=== PATIENT | male | born 1980 | race Caucasian/White ===

== ENCOUNTER 2016-07-14 16:24 | Emergency (ER) | payer MEDICAID ==
[~2016-07-14] VITALS: Ht 180.3 cm; Wt 68.0 kg
[2016-07-14 17:23] VITALS: BP 158/86
[2016-07-14] MEDS ORDERED: NEOMYCIN/POLYMYXIN/BACITRACIN 0.9 GM/1 PKT TP ONE (18:28)
--- NOTE | 2016-07-14 18:30 | NUR ---
PT BIB CAREGIVERS FOR EVALUATION OF BUMP ON FOREHEAD S/P FALL FROM W/C AT DAY PROGRAM. HX CP, DD. . DENIES N/V/D; SKIN IS PINK/WARM/DRY; AAOX4 WITH EVEN AND STEADY GAIT; LUNGS CLEAR BL; HR EVEN AND REGULAR; PT DENIES ANY FEVER, CP, SOB, OR COUGH AT THIS TIME; PATIENT STATES PAIN OF 0/10 AT THIS TIME; VSS; PATIENT POSITIONED FOR COMFORT; HOB ELEVATED; BEDRAILS UP X2; BED DOWN. ER MD MADE AWARE OF PT STATUS.
[2016-07-14] MEDS ORDERED: BACITRACIN OINT 500 UNITS/GM PKT TP ONE (18:40)
[2016-07-14 19:00] VITALS: BP 132/86
--- NOTE | 2016-07-14 19:00 | NUR ---
Patient discharged with v/s stable. Written and verbal after care instructions given and explained. Patient verbalized understanding. Wheel Chair Assisted with by parent. All questions addressed prior to discharge. Advised to follow up with PMD.
== END 2016-07-14 19:00 | disposition home or self-care (01) ==
LOC: MED 16:25
DX: S00.81XA Abrasion of other part of head, initial encounter (principal); X58.XXXA Exposure to other specified factors, initial encounter; Y93.89 Activity, other specified; Y92.89 Other specified places as the place of occurrence of the external cause; Y99.8 Other external cause status

== ENCOUNTER 2018-12-25 12:48 | Emergency (ER) | payer MEDICAID ==
[~2018-12-25] VITALS: Ht 182.9 cm; Wt 63.5 kg
[2018-12-25 12:56] VITALS: BP 133/68
--- NOTE | 2018-12-25 12:56 | NUR ---
Patient transferred to bed 8 via personal wheelchair by caregiver. RN evaluating patient at bedside.
--- NOTE | 2018-12-25 13:06 | NUR ---
Patient being evaluated by Dr. Ferrari at bedside.
--- NOTE | 2018-12-25 13:09 | NUR ---
Pt c/o right ankle pain. Pt bib caregiver, states pt fell while inside the w/c. Caregiver states "We believe the ankle may be sprained." Pt withdraws from touch to right ankle. Pt non verbal, at baseline per caregiver. There is an abrasion to left forearm. No active bleeding ntoed. hx CP, Klinefelers syndrome, MRSA skin
--- NOTE | 2018-12-25 13:20 | NUR ---
XRAY AT BEDSIDE.
--- NOTE | 2018-12-25 14:44 | NUR ---
PATIENT RESTING IN BED, EYES OPEN SPONTANEOUSLY, FLACC 0, RESPIRATIONS EVEN AND UNLABORED.
--- NOTE | 2018-12-25 14:49 | NUR ---
EMT AT BEDSIDE FOR SPLINT.
--- NOTE | 2018-12-25 15:09 | NUR ---
LONG LEG POSTERIOR SPLINT PLACED ON RIGHT LEG.
[2018-12-25 16:11] VITALS: BP 123/45
--- NOTE | 2018-12-25 16:11 | NUR ---
Written and verbal after care instructions given and explained to caregiver. Wheel chair assisted by caregiver to car. All questions addressed prior to discharge. ID band removed. Caregiver provided with CD with copies of x-rays. Patient advised to follow up with PMD. Rx of Tramadol given. Patient educated on indication of medication including possible reaction and side effects. Opportunity to ask questions provided and answered.
== END 2018-12-25 16:11 | disposition home or self-care (01) ==
LOC: MED 12:48
DX: S82.244A Nondisplaced spiral fracture of shaft of right tibia, initial encounter for closed fracture (principal); G80.9 Cerebral palsy, unspecified; W05.0XXA Fall from non-moving wheelchair, initial encounter; Y93.89 Activity, other specified; Y92.89 Other specified places as the place of occurrence of the external cause; Y99.8 Other external cause status
CPT/HCPCS: 29505; 29515; 73590; 99283

== ENCOUNTER 2019-10-06 14:02 | Emergency (ER) | payer MEDICAID ==
[~2019-10-06] VITALS: Ht 182.9 cm; Wt 88.5 kg
[2019-10-06 14:16] VITALS: BP 110/79
--- NOTE | 2019-10-06 14:20 | NUR ---
39 YO MALE PT HAS WHAT APPEARS TO BE A BUG BITE ON HIS LEFT THUMB X1W. PT IS NON VERBAL BUT HAS BEEN SEEN RUBBING HIS THUMB. THUMB IS RED AND SWOLLEN, NO BLEEDING OR DISCHARGE. DAVIDA
[2019-10-06 15:17] VITALS: BP 110/79
--- NOTE | 2019-10-06 15:18 | NUR ---
Patient discharged with v/s stable. Written and verbal after care instructions given and explained. Patient alert, oriented and verbalized understanding of instructions. Ambulatory with by caregiver. All questions addressed prior to discharge. ID band removed. Patient advised to follow up with PMD. Rx of BACTRIM AND IBUPROFEN given. Patient educated on indication of medication including possible reaction and side effects. Opportunity to ask questions provided and answered.
== END 2019-10-06 15:18 | disposition home or self-care (01) ==
LOC: MED 14:02
DX: L03.012 Cellulitis of left finger (principal)
CPT/HCPCS: 99282

== ENCOUNTER 2019-10-08 19:26 | Inpatient (IN) | payer MEDICAID ==
[~2019-10-08] VITALS: Ht 185.4 cm; Wt 72.6 kg
[2019-10-08 19:31] VITALS: BP 152/91
--- NOTE | 2019-10-08 19:37 | NUR ---
PT TAKEN TO BED 5
[2019-10-08] MEDS ORDERED: KETOROLAC 30 MG/ML VIAL IM ONE (19:40)
--- NOTE | 2019-10-08 19:50 | NUR ---
ADRIAN OTERO WITH PT
[2019-10-08] MEDS ORDERED: cefTRIAXone 1,000 MG VIAL ONE (20:07)
--- NOTE | 2019-10-08 20:15 | NUR ---
LABS AND CULTURES OBTAINED AND GIVEN TO LEAD INJECTION MOLD TECHNICIAN.
--- NOTE | 2019-10-08 20:15 | NUR ---
39 Y/O M PRESENTS TO ED WITH HIS CAREGIVER C/O LEFT THUMB PAIN 3/10 FLACC X 2 DAYS AGO. PT WAS SEEN ON WEDNESDAY FOR AN INFECTION OF THE LEFT THUMB, WAS PRESCRIBED ANTIBIOTICS. PER CAREGIVER, PT IS TAKING HIS ANTIBIOTICS BUT NOTICED THAT THE CUT HAS OPENED UP TODAY AND WAS BLEEDING. BLEEDING CONTROLLED DURING ASSESSMENT. REDNESS NOTED ON THE LEFT THUMB ALL THE WAY TO LEFT FOREARM. EXTREMITY WARM TO TOUCH, LEFT THUMB SWOLLEN NOTED. CAREGIVER AT BEDSIDE. PT SITTING ON OWN WHEELCHAIR. ATTACHED TO BEDSIDE MONITOR. WILL CONTINUE TO MONITOR. MHX: LOVEIES DAVIDA
--- NOTE | 2019-10-08 20:18 | NUR ---
RAD AT BEDSIDE.
[2019-10-08 20:21] LABS: BASOPHILS # (AUTO) 0.1 K/uL (0.00-0.22); BASOPHILS % (AUTO) 0.4 % (0.0-2.0); EOSINOPHILS # (AUTO) 0.1 K/uL (0-0.4); EOSINOPHILS % (AUTO) 0.8 % (0.0-4.0); HEMATOCRIT 48.7 % (36-52); HEMOGLOBIN 15.8 g/dL (12.0-18.0); LYMPHOCYTES # (AUTO) 1.1 K/uL (2.0-11.5); MEAN CORPUSCULAR HEMOGLOBIN 30 pg (27-31); MEAN CORPUSCULAR HGB CONC 32 g/dL (33-37); MEAN CORPUSCULAR VOLUME 91.1 fL (80-94); MONOCYTES # (AUTO) 0.9 K/uL (0.8-1.0); MONOCYTES % (AUTO) 7.9 % (1.7-9.3); NEUTROPHILS # (AUTO) 9.2 K/uL (1.8-7.7); NEUTROPHILS % (AUTO) 80.9 % (42.2-75.2); PLATELET COUNT (AUTO) 203 K/uL (140-450); RED BLOOD CELL COUNT(AUTO) 5.34 MIL/uL (4.20-6.10); WHITE BLOOD COUNT (AUTO) 11.4 K/uL (4.8-10.8)
[2019-10-08] MEDS ORDERED: ACETAMINOPHEN EXTRA STRENGTH 500 MG TAB ONE (20:39)
[2019-10-08] MEDS ORDERED: ACETAMINOPHEN EXTRA STRENGTH 500 MG TAB PO ONE (20:40)
[2019-10-08 20:45] LABS: ANION GAP 12.7 (8-16); CARBON DIOXIDE 30.1 mmol/L (21-32); CREATININE 1.2 mg/dL (0.6-1.3); POTASSIUM 3.8 mmol/L (3.5-5.1); TOTAL BILIRUBIN 0.3 mg/dL (0.0-1.0)
--- NOTE | 2019-10-08 20:46 | NUR ---
PT ABLE TO SWALLOW PILLS WITH APPLE SAUCE.
[2019-10-08] MEDS ORDERED: NACL 0.9% 2,500 ML IV ONE (20:50)
[2019-10-08] MEDS: NACL 0.9% 1,000 ML IV SCH (21:28)
[2019-10-08] MEDS ORDERED: ONDANSETRON 4 MG/2 ML VIAL IM/IVP PRN (21:30)
[2019-10-08] MEDS ORDERED: DOCUSATE SODIUM 100 MG GELCAP PO PRN (21:30)
[2019-10-08] MEDS ORDERED: POTASSIUM CHLORIDE 10 MEQ TABER PO PRN (21:30)
[2019-10-08] MEDS ORDERED: ACETAMINOPHEN 325 MG TAB PO PRN (21:30)
[2019-10-08] MEDS ORDERED: ZOLPIDEM 5 MG TAB PO PRN (21:30)
[2019-10-08] MEDS ORDERED: HYDROcodone/APAP 7.5/325 MG 1 TAB PO PRN (21:30)
[2019-10-08 21:45] VITALS: BP 105/74
--- NOTE | 2019-10-08 21:45 | NUR ---
ADMITTED THE PATIENT FROM E. BY WHEELCHAIR. PATIENT IS AWAKE,ALERT BUT UNABLE TO PROVIDE ANY INFORMATION BECAUSE PATIENT IS DEVELOPMENTALLY DELAYED AND HAS HISTORY OF CEREBRAL PALSY. PT BILLET ASSEMBLER AUDREY AT THE BEDSIDE ALSO HAS A LIMITED INFORMATION ABOUT THE PATIENT. HELPED THE PT TO BED AND NEEDED 2 PEOPLE ASSIST. PATIENT WAS ABLE TO STAND UP WITH ASSISTANCE AND TRANSFER TO BED. WHEN THE PT IS IN BED NOTED THAT HE WAS TRYING TO GET OUT OF BED AND PER CAREGIVER PT SOMETIMES GET OOB AND STARTS CRAWLING ON THE FLOOR. NOTIFIED THE THEATRICAL PERFORMER THAT THE PT NEEDS A SITTER. TRANSFERRED THE PT TO ROOM 123B AND SITTER IS PROVIDED AND AT THE BEDSIDE. WILL CALL MD FOR THE SITTER ORDER. CALL LIGHT WITHIN REACH. WILL CONTINUE POC.
--- NOTE | 2019-10-08 22:00 | NUR ---
Patient will be admitted to care of DR. MCGHEE. Admited to MED-SURG. Will go to room 123B. Belongings list completed. Report to ISAMAR GONZALEZ.
[2019-10-08 22:10] LABS: CHOL/HDL RATIO 4.2 (1-4.5); FREE T4 (FREE THYROXINE) 0.96 ng/dL (0.76-1.46); MAGNESIUM 2.1 mg/dL (1.8-2.4); PHOSPHORUS 2.4 mg/dL (2.5-4.9); THYROID STIMULATING HORMONE 0.64 uIU/mL (0.34-3.74)
[2019-10-08 22:13] LABS: PROTHROMBIN TIME 9.9 secs (10.8-13.4)
[2019-10-08] MEDS ORDERED: BISA-218 RC (22:31)
[2019-10-08] MEDS ORDERED: MIRABULK PO (22:31)
[2019-10-08] MEDS ORDERED: ERYT2GEL22 TP (22:31)
[2019-10-08] MEDS ORDERED: KEP500 PO (22:31)
[2019-10-08] MEDS ORDERED: MAGN2400 PO (22:31)
[2019-10-08] MEDS ORDERED: NA P133N16 RC (22:31)
[2019-10-08] MEDS ORDERED: MULT-2247 PO (22:31)
[2019-10-08] MEDS ORDERED: CARB15DR5 OT (22:31)
[2019-10-08] MEDS ORDERED: CHLO120L4 TP (22:31)
[2019-10-08] MEDS ORDERED: LEVE500T9 PO (22:31)
[2019-10-08] MEDS ORDERED: NAPR220T29 PO (22:31)
[2019-10-08] MEDS ORDERED: ROB1 PO (22:31)
[2019-10-08] MEDS ORDERED: LEVE250T1 PO (22:31)
[2019-10-08] MEDS ORDERED: DOCO1CRE TP (22:31)
[2019-10-08] MEDS ORDERED: ACET-2619 PO (22:31)
[2019-10-08] MEDS ORDERED: ceFAZolin 1,000 MG VIAL ONE (23:35)
[2019-10-09] VITALS: BP 124/91
--- NOTE | 2019-10-09 | NUR ---
PATIENT FELL ASLEEP.VITAL SIGNS STABLE,AFEBRILE, SATING 98% ON RA. SITTER AT THE BEDSIDE FOR SAFETY.
--- NOTE | 2019-10-09 03:33 | NUR ---
PT STILL ASLEEP. VISIBLE CHEST RISE AND FALL NOTED. SAFETY MEASURES IN PLACED.
[2019-10-09] MEDS ORDERED: ceFAZolin 1,000 MG VIAL ONE (04:25)
--- NOTE | 2019-10-09 05:20 | NUR ---
PT AWAKE AND ALERT. EVENING CARE PROVIDED. SECURED PATIENT IV ON THE RT ANTECUBITAL AREA. PATIENT HAS BM, SOFT, MODERATE AMOUNT. BED IN LOW POSITION.NOT IN ANY DISTRESS OR PAIN.SITTER AT THE BEDSIDE.
--- NOTE | 2019-10-09 06:31 | NUR ---
PATIENT STABLE. NO ACUTE EVENTS OVERNIGHT. NO SIGN AND SYMPTOMS OF DISTRESS NOTED. NO COMPLAIN AT THIS TIME. ALL NEEDS ATTENDED. CALL LIGHT WITHIN REACH. WILL ENDORSE THE PT TO THE ONCOMING RN FOR CONTINUITY OF CARE.
[2019-10-09 06:51] LABS: BASOPHILS % (AUTO) 0.4 % (0.0-2.0); EOSINOPHILS # (AUTO) 0.1 K/uL (0-0.4); EOSINOPHILS % (AUTO) 1.8 % (0.0-4.0); HEMATOCRIT 42.7 % (36-52); HEMOGLOBIN 14.1 g/dL (12.0-18.0); LYMPHOCYTES # (AUTO) 1.9 K/uL (2.0-11.5); LYMPHOCYTES % (AUTO) 26.5 % (20.5-51.1); MEAN CORPUSCULAR HEMOGLOBIN 30 pg (27-31); MEAN CORPUSCULAR HGB CONC 33 g/dL (33-37); MEAN CORPUSCULAR VOLUME 90.4 fL (80-94); MONOCYTES # (AUTO) 0.6 K/uL (0.8-1.0); NEUTROPHILS # (AUTO) 4.6 K/uL (1.8-7.7); NEUTROPHILS % (AUTO) 63.3 % (42.2-75.2); PLATELET COUNT (AUTO) 183 K/uL (140-450); RED BLOOD CELL COUNT(AUTO) 4.72 MIL/uL (4.20-6.10); RED CELL DISTRIBUTION WIDTH 13.7 % (11.6-13.7); WHITE BLOOD COUNT (AUTO) 7.2 K/uL (4.8-10.8)
[2019-10-09 07:10] LABS: ANION GAP 9.6 (8-16); CARBON DIOXIDE 31.1 mmol/L (21-32); CREATININE 0.9 mg/dL (0.6-1.3); POTASSIUM 3.7 mmol/L (3.5-5.1)
--- NOTE | 2019-10-09 07:15 | NUR ---
PATIENT STABLE. ENDORSED THE PT TO THE DAY RN FOR CONTINUITY OF CARE.BED IN LOW POSITION. SIGNING OFF.
--- NOTE | 2019-10-09 07:20 | NUR ---
RECEIVED BEDSIDE REPORT FROM NIGHTSHIFT NURSE. PT RESTING IN BED. ABLE TO MAKE NEEDS KNOWN. RESPIRATIONS EVEN AND UNLABORED WITH NO SOB OR RESPIRATORY DISTRESS. SKIN WARM AND DRY TO TOUCH. IV SITE IN RAC 20G IS CLEAN, DRY, AND INTACT. SAFETY MEASURES IN PLACE. WILL CONTINUE TO MONITOR
[2019-10-09 08:00] VITALS: BP 128/58
[2019-10-09] MEDS: NACL 0.9% 1,000 ML IV SCH ×3 (08:08→23:44)
--- NOTE | 2019-10-09 08:09 | NUR ---
ADMINISTERED SCHED MED PRESCRIBED PER MD ORDER. PT TOLERATED WELL. SAFETY MEASURES IN PLACE. WILL CONTINUE TO MONITOR
--- NOTE | 2019-10-09 09:39 | NUR ---
PATIENT HAS BEEN SCREENED AND CATEGORIZED MODERATE NUTRITION RISK. PATIENT WILL BE SEEN WITHIN 3-5 DAYS OF ADMISSION. 10/11/19 10/13/[address]
--- NOTE | 2019-10-09 10:15 | NUR ---
SWABBED PATIENT FOR COVID PRESCRIBED PER MD ORDER. PT TOLERATED OKAY. SAFETY MEASURES IN PLACE. WILL CONTINUE TO MONITOR
--- NOTE | 2019-10-09 10:30 | NUR ---
ASSISTED SITTER TURN, CHANGE, AND REPOSITION PATIENT TOLERATED WELL. SAFETY MEASURES IN PLACE. WILL CONTINUE TO MONITOR
--- NOTE | 2019-10-09 12:35 | NUR ---
ADMINISTERED SCHED MED PRESCRIBED PER MD ORDER. PT TOLERATED WELL. SAFETY MEASURES IN PLACE. WILL CONTINUE TO MONITOR
--- NOTE | 2019-10-09 14:05 | NUR ---
ASSISTED SITTER TURN, CHANGE, AND REPOSITION PATIENT TOLERATED WELL. SAFETY MEASURES IN PLACE. WILL CONTINUE TO MONITOR
--- NOTE | 2019-10-09 14:18 | NUR ---
NURSE PRACTITIONER PHYSICIANS ASSISTANT NOTE: Patient's Orientation Unable To Assess Information Provided By [facility] - ADMIN Comments SW WAS UNABLE TO MEET PATIENT AT BEDSIDE DUE TO MEDICAL CONDITION. Planer Chain Offbearer, Realtionship and Phone Number [facility] OF [facility] [phone] CAROL ANN MINAYA MOTHER [phone] Healthcare Power of Lens Inspector No Does Patient Have a POLST No Identifying Problems No Social Work Triggers Is A Social Work Consult Needed No Mandate Report Filed No Explanation Of Identifying Problems PATIENT IS A 39-YEAR-OLD MALE ADMITTED FOR CELLULITIS. PATIENT HAS PMHX OF CEREBRAL PALSY, DEVELOPMENTAL DELAY, AND SEIZURE DISORDER. PATIENT WAS ADMITTED FROM [facility]. Admitted From [facility] Pre-Admission Level Of Functioning Status Total Care Prior Resources/Services Used In Last 12 Months [facility] Prior Resources/Service Comments PER [facility], PATIENT'S IRC WORKER IS AIXA SWANN [phone]. Prior DME Wheelchair Patient Had Caregiver No Home Support No Caregiver Issues Financial Issues No Known Financial Issue Referral To The Financial Counselor Needed No Factors/Needs No D/C Needs Identified Explanation And Or Other Factors Affecting/Possible DC Needs PER [facility], PATIENT REQUIRES 1 NEGATIVE COVID TESTING AND TO INFORM [facility] BEFORE PATIENT IS ACCEPTED. Discharge Plan Comments TENTATIVE DISCHARGE PLAN IS FOR PATIENT TO RETURN TO [facility]. DC Plan Status Initiated
--- NOTE | 2019-10-09 15:34 | NUR ---
HOURLY ROUNDING. PT RESTING IN BED WITH SITTER AT DOORWAY. RESPIRATIONS EVEN AND UNLABORED WITH NO SOB OR RESPIRATORY DISTRESS. SKIN WARM AND DRY TO TOUCH. SAFETY MEASURES IN PLACE. WILL CONTINUE TO MONITOR
[2019-10-09 16:00] VITALS: BP 121/55
--- NOTE | 2019-10-09 18:03 | NUR ---
ADMINISTERED SCHED MED PRESCRIBED PER MD ORDER. PT TOLERATED WELL. MEDICATION EDUCATION PERFORMED. PT APHASIC AND UNABLE TO VERBALIZE UNDERSTANDING. SAFETY MEASURES IN PLACE. WILL CONTINUE TO MONITOR
--- NOTE | 2019-10-09 19:03 | NUR ---
ENDORSED AT BEDSIDE FOR CONTINUITY OF CARE. PT IS STABLE
--- NOTE | 2019-10-09 19:05 | NUR ---
RECEIVED PATIENT IN STABLE CONDITION FROM AM SHIFT NURSE FOR CONTINUITY OF CARE. MEDSURG PATIENT. RESPIRATIONS EVEN, UNLABORED. SKIN WARM, DRY. LEFT THUMB IS RED, WARM TO TOUCH. IV SITE NOTED TO RIGHT AC 20G PATENT/INTACT, INFUSING FLUIDS WELL. FLACC 0. NO S/S ACUTE DISTRESS. ABDOMEN SOFT, NONTENDER, NONDISTENDED. INCONTINENT OF B/B. SAFETY PRECAUTIONS IN PLACE. ISOLATION PRECAUTIONS OBSERVED BY ALL STAFF. PLAN OF CARE DISCUSSED. CALL LIGHT WITHIN REACH. SITTER AT BEDSIDE.
[2019-10-09] MEDS: levETIRAcetam 500 MG TAB PO SCH (20:53)
--- NOTE | 2019-10-09 21:00 | NUR ---
PATIENT RESTING COMFORTABLY IN BED. DUE MEDS GIVEN ORDERED. SITTER AT BEDSIDE.
--- NOTE | 2019-10-09 23:00 | NUR ---
INCONTINENT CARE RENDERED WITH FOOD SAFETY DIRECTOR AT BEDSIDE. NO S/S ACUTE DISTRESS. FLACC 0. SITTER CONTINUES AT BEDSIDE FOR SAFETY.
[2019-10-10] VITALS: BP 137/91
--- NOTE | 2019-10-10 01:07 | NUR ---
MADE ROUNDS. PATIENT RESTING COMFORTABLY IN BED. FLACC 0. NO S/S ACUTE DISTRESS. SAFETY PRECAUTIONS IN PLACE. ISOLATION PRECAUTIONS OBSERVED BY ALL STAFF.
--- NOTE | 2019-10-10 03:02 | NUR ---
PATIENT IS ASLEEP. NO S/S ACUTE DISTRESS. SAFETY PRECAUTIONS IN PLACE. ISOLATION PRECAUTIONS OBSERVED BY ALL STAFF.
--- NOTE | 2019-10-10 05:41 | NUR ---
INCONTINENT CARE RENDERED WITH METAL WORKER AT BEDSIDE. FLACC 0. NO S/S ACUTE DISTRESS. SAFETY PRECAUTIONS IN PLACE. ISOLATION PRECAUTIONS OBSERVED BY ALL STAFF. SITTER AT BEDSIDE.
[2019-10-10 06:22] LABS: BASOPHILS % (AUTO) 0.5 % (0.0-2.0); EOSINOPHILS # (AUTO) 0.3 K/uL (0-0.4); EOSINOPHILS % (AUTO) 6.1 % (0.0-4.0); HEMATOCRIT 42.3 % (36-52); HEMOGLOBIN 13.9 g/dL (12.0-18.0); LYMPHOCYTES # (AUTO) 1.9 K/uL (2.0-11.5); LYMPHOCYTES % (AUTO) 44.7 % (20.5-51.1); MEAN CORPUSCULAR HEMOGLOBIN 30 pg (27-31); MEAN CORPUSCULAR HGB CONC 33 g/dL (33-37); MEAN CORPUSCULAR VOLUME 90.4 fL (80-94); MONOCYTES # (AUTO) 0.3 K/uL (0.8-1.0); MONOCYTES % (AUTO) 7.6 % (1.7-9.3); NEUTROPHILS # (AUTO) 1.8 K/uL (1.8-7.7); NEUTROPHILS % (AUTO) 41.1 % (42.2-75.2); PLATELET COUNT (AUTO) 163 K/uL (140-450); RED BLOOD CELL COUNT(AUTO) 4.68 MIL/uL (4.20-6.10); RED CELL DISTRIBUTION WIDTH 13.3 % (11.6-13.7); WHITE BLOOD COUNT (AUTO) 4.3 K/uL (4.8-10.8)
[2019-10-10 06:40] LABS: ANION GAP 10.8 (8-16); CARBON DIOXIDE 29.8 mmol/L (21-32); CREATININE 0.7 mg/dL (0.6-1.3); POTASSIUM 3.6 mmol/L (3.5-5.1)
--- NOTE | 2019-10-10 07:21 | NUR ---
RECEIVED REPORT FROM SUPERVISOR ASSEMBLY FOR CONTINUITY OF CARE. AAOX1. RESPIRATIONS EVEN, UNLABORED. SKIN WARM, DRY. LEFT THUMB IS RED, WARM TO TOUCH AND WRAPPED WITH BANDAGE. IV SITE NOTED TO RIGHT AC 20G PATENT/INTACT, INFUSING FLUIDS WELL. FLACC 0. NO S/S ACUTE DISTRESS. ABDOMEN SOFT, NONTENDER, NONDISTENDED. INCONTINENT OF B/B. SAFETY PRECAUTIONS IN PLACE. PLAN OF CARE DISCUSSED BUT PT UNABLE TO COMPREHEND. CALL LIGHT WITHIN REACH. SITTER AT BEDSIDE. WILL ROUND FREQUENTLY ON PT THROUGHOUT THE SHIFT.
[2019-10-10 08:00] VITALS: BP 127/76
--- NOTE | 2019-10-10 09:37 | NUR ---
ADMINISTERED MORNING MEDS. PT TOLERATED WELL.
[2019-10-10] MEDS: levETIRAcetam 500 MG TAB PO SCH ×2 (09:47→22:52)
--- NOTE | 2019-10-10 11:27 | NUR ---
PT RESTING IN BED. ALL NEEDS MET.
[2019-10-10] MEDS: NACL 0.9% 1,000 ML IV SCH (14:27)
--- NOTE | 2019-10-10 15:47 | NUR ---
PT WITH SITTER AT BEDSIDE. ALL NEEDS MET.
[2019-10-10 16:00] VITALS: BP 117/78
--- NOTE | 2019-10-10 16:12 | NUR ---
DC PLANNIN YRS OLD MALE PATIENT WAS ADMITTED FROM [facility] WITH A DX OF CELLULITIS OF THE LEFT THUMB, POSSIBLE SEPSIS FAILED OUT PATIENT THERAPY. PT HAS A HX CEREBRAL PALSY , INTELLECTUAL DISABILITY AND SEIZURE DISORDER. CXR SHOWED NO ACUTE DISEASE IS SEEN. LEFT HAND XRAY SHOWED NO FRACTURE THE 2ND THROUGH 5TH DIGITS ARE FLEXED . ADMINISTERED IVF, IV ABX ANCEF. CONTINUE HOME MEDS. CONSULTED WITH SURGEON FOR POSSIBLE I&D. DC PLAN TO GO BACK TO [facility] CM TO FOLLOW. Addendum: 10/12/19 at 1126 by Kendra Schmidt CM DC PLANNING: SCHEDULED FOR I&D LEFT THUMB/HAND ABSCESS, DEBRIDEMENT POSSIBLE FASCIOTOMY BY DR FUCHS . CONTINUE IV ABX VANCOMYCIN AND CEFAZOLIN. DC PLAN TO GO BACK TO [facility] WHEN STABLE CM TO FOLLOW. Addendum: 10/13/19 at 1257 by Katy Kothari CONTACTED AIXA [facility] WORKER [phone] TO NOTIFY HER THAT PATIENT IS READY FOR DISCHARGE TODAY. SHE REQUESTED I E-MAIL HER PATIENTS CLINICALS TO [email or web address]. CONTACTED [facility] AND SPOKE TO CHERY [phone]. THEY WERE CONCERNED ABOUT TAKING PATIENT BACK DUE TO WOUND CARE SINCE THEY ARE NOT A [facility] FACILITY. SPOKE TO ISAMAR HARVEY HE IS GOING TO CONTACT CHERY. Addendum: 10/13/19 at 1419 by Kendra Schmidt CM DC PLANNING: RECEIVED A CALL FROM CHERY RN REQUESTED THE WOUND CARE ORDER. PATIENT WAS EVALUATED WITH WOUND CARE NURSE PATI EXPLAINED THE WOUND CARE ORDER AGREED WITH THE DRESSING CHANGE ORDER. CALLED AIXA AT [facility] THEY THEY DON'T HAVE RN TO CLEAR THE PATIENT UNTIL WEDNESDAY AND ALSO [facility] ADMIN STATED UNABLE TO TAKE PATIENT WITHOUT CLEARANCE FROM [facility] AND RN WILL BE AVAILABLE ON WEDNESDAY. CM TO FOLLOW Addendum: 10/16/19 at 1210 by Kendra Schmidt CM DC PLANNING: CALLED [facility] SPOKE WITH AIXA NOTIFIED HER PT HAS A DC ORDER PER AIXA [place] CLEAR PATIENT AND CAN GO TO [facility] AND WILL PICK HIM UP AFTER 12 PM. CM TO FOLLOW
--- NOTE | 2019-10-10 17:17 | NUR ---
PT HAVING DINNER. ALL NEEDS MET.
--- NOTE | 2019-10-10 19:00 | NUR ---
WILL ENDORSE TO WASHER OPERATOR FOR CONTINUITY OF CARE. PT IN STABLE CONDITION AT THIS TIME.
--- NOTE | 2019-10-10 19:01 | NUR ---
RECD. RESTING IN BED COMFORTABLY SLEEPING BUT EASILY AROUSABLE. ALERT/OX1. RESPIRATION EVEN AND UNLABORED. IV OF NS AT 100 ML/HR INFUSING, RIGHT AC G20. SAFETY MEASURES ENFORCED. BED IN THE LOWEST POSITION, BED ON ALARM. LEFT THUMB WITH REDNESS AND SWELLING. PLAN OF CARE DISCUSSED. NEEDS REINFORCEMENT. NO APPEARANCE OF PAIN NOTED, 0/10.
--- NOTE | 2019-10-10 19:02 | NUR ---
Patient's Plan of Care was discussed and reviewed with CAPACITY PLANNER: GREGORY RAI. WILL CONTINUE TO MONITOR.
[2019-10-10] MEDS: VANCOMYCIN HCL 750 MG in DEXTROSE 5% 250 ML IV SCH (21:30)
--- NOTE | 2019-10-10 21:31 | NUR ---
SCHEDULED MEDICATIONS DUE GIVEN. WILL CONTINUE TO MONITOR.
[2019-10-11] VITALS: BP 135/94
[2019-10-11] MEDS: NACL 0.9% 1,000 ML IV SCH ×3 (00:01→19:28)
--- NOTE | 2019-10-11 00:16 | NUR ---
SCHEDULED IV MEDICATIONS DUE GIVEN. WILL CONTINUE TO MONITOR.
--- NOTE | 2019-10-11 02:00 | NUR ---
HAD BM, BETWEEN SMALL AND MEDIUM SIZE, FORMED STOOLS. CLEANSED AND MADE COMFORTABLE ION BED WITH PILLOWS.
--- NOTE | 2019-10-11 04:00 | NUR ---
IV OUT OF PLACED, WILL INSERT NEW IV LINE. CLEANSED AND REPOSITIONED IN BED WITH PILLOWS. KEEP ON TURNING IN BED.
--- NOTE | 2019-10-11 05:30 | NUR ---
NEW IV LINE INSERTED LEFT FOREARM G22.
--- NOTE | 2019-10-11 07:10 | NUR ---
RESPIRATORY STATUS REMAIN STABLE. ENDORSED TO ISAMAR HARVEY FOR CONTINUITY OF CARE.
[2019-10-11 07:15] LABS: BASOPHILS % (AUTO) 0.8 % (0.0-2.0); EOSINOPHILS # (AUTO) 0.2 K/uL (0-0.4); EOSINOPHILS % (AUTO) 4.5 % (0.0-4.0); HEMATOCRIT 46.2 % (36-52); HEMOGLOBIN 15.2 g/dL (12.0-18.0); LYMPHOCYTES # (AUTO) 2.1 K/uL (2.0-11.5); LYMPHOCYTES % (AUTO) 43.4 % (20.5-51.1); MEAN CORPUSCULAR HEMOGLOBIN 30 pg (27-31); MEAN CORPUSCULAR HGB CONC 33 g/dL (33-37); MEAN CORPUSCULAR VOLUME 89.8 fL (80-94); MONOCYTES # (AUTO) 0.4 K/uL (0.8-1.0); MONOCYTES % (AUTO) 8.4 % (1.7-9.3); NEUTROPHILS # (AUTO) 2.1 K/uL (1.8-7.7); NEUTROPHILS % (AUTO) 42.9 % (42.2-75.2); PLATELET COUNT (AUTO) 184 K/uL (140-450); RED BLOOD CELL COUNT(AUTO) 5.14 MIL/uL (4.20-6.10); RED CELL DISTRIBUTION WIDTH 13.2 % (11.6-13.7); WHITE BLOOD COUNT (AUTO) 4.9 K/uL (4.8-10.8)
--- NOTE | 2019-10-11 07:21 | NUR ---
SHIFT REPORT RECEIVED FROM SENIOR ACCOUNTING CLERK NURSE. PT IS ON LEFT LATERAL. NO DISTRESS NOTED. IV IN PLACE AND INFUSING. BED IN LOW POSITION. SITTER BY DOOR. WILL CONTINUE TO MONITOR. CALL LIGHT IN REACH
[2019-10-11 08:00] VITALS: BP 128/71
[2019-10-11] MEDS: levETIRAcetam 500 MG TAB PO SCH ×2 (08:41→21:31)
[2019-10-11 08:47] LABS: CARBON DIOXIDE 31.5 mmol/L (21-32); CREATININE 0.8 mg/dL (0.6-1.3); POTASSIUM 3.5 mmol/L (3.5-5.1)
--- NOTE | 2019-10-11 09:00 | NUR ---
PT IS AWAKE AND IS RIGHT LATERAL. PT TOOK A.M. ORAL MEDS. VITAL SIGNS NORMAL. O2 SATS AT 94% ON RA. NO DISTRESS. FLACC 0. 1:1 SITTER. BED IN LOW POSITION. PT IS NON VERBAL. MOTHER CALLED EARLIER AND REQUESTED TO READ 2ND GRADE BOOKS TO HIM. WILL CONTINUE TO MONITOR.
[2019-10-11 09:03] LABS: MAGNESIUM 1.9 mg/dL (1.8-2.4); PHOSPHORUS 3.2 mg/dL (2.5-4.9)
[2019-10-11] MEDS: MUPIROCIN 2% OINT 22 GM TUBE TP SCH (11:05)
[2019-10-11] MEDS: CHLORHEXADINE GLUC 2% CLOTH TP SCH (11:05)
--- NOTE | 2019-10-11 12:30 | NUR ---
PT REPOSITIONED. NO DISTRESS NOTED. IV ABX INFUSING. BED IN LOW POSITION. PT RESPONDS TO NAME. 1:1 SITTER. WILL CONTINUE TO MONITOR.
--- NOTE | 2019-10-11 13:56 | NUR ---
PER DR LOAIZA PT WILL HAVE AN I&D TOMORROW. CONSENT SIGNED.
[2019-10-11 16:00] VITALS: BP 123/68
--- NOTE | 2019-10-11 17:00 | NUR ---
PT IV INFILTRATED ON LEFT HAND. NOTED WITH SWELLING. IV DISCONTINUED ON LEFT FOREARM. NEW IV LINE INSERTED ON RIGHT FOREARM 24G. PATENT AND FLUSHED. NO DISTRESS. WILL CONTINUE TO MONITOR.
[2019-10-11] MEDS: VANCOMYCIN HCL 750 MG in DEXTROSE 5% 250 ML IV SCH (18:06)
--- NOTE | 2019-10-11 19:10 | NUR ---
RECD. RESTING IN BED, AWAKE, A/OX1. RESPIRATION EVEN AND UNLABORED. IVPB OF VANCOMYCIN 750 MG. INFUSING AT AT 165 ML/HR, RIGHT FOREARM G24. PATIENT IS TRYING TO GET OUT OF BED, 1:1 SITTER MONITORING PATIENT. REORIENTED TO HOSPITAL SETTING, NEEDS REINFORCEMENT. NO APPEARANCE OF PAIN NOTED, FLACC -0.
--- NOTE | 2019-10-11 19:30 | NUR ---
SHIFT REPORT RECEIVED FROM PASTEURIZING SUPERVISOR NURSE. PT IS IN BED IN STABLE CONDITION.
[2019-10-11] MEDS: VANCOMYCIN 1,000 MG in NACL 0.9% 250 ML IV SCH (20:00)
--- NOTE | 2019-10-11 20:00 | NUR ---
MOM CALLED FROM [place] CHECKING OF CHILDREN'S BOOKS WAS GIVEN TO PATIENT. CALLED ADMITTING STAFF, NO BOOKS AVAILABLE ONLY COLORING BOOK. GOT ONE AND COLOR ONE PAGE, GIVEN TO PATIENT. SEEMS INTERESTED IN IT BUT NOT FOR A LONG TIME.
--- NOTE | 2019-10-11 20:30 | NUR ---
PLAN OF CARE DISCUSSED WITH GREGORY RAI RN.
--- NOTE | 2019-10-11 21:30 | NUR ---
Patient's Plan of Care was discussed and reviewed with LEARNING AND DEVELOPMENT SPECIALIST: GREGORY. PT LAYING IN BED AWAKE. NO S/S OF DISTRESS. WILL ROUND FREQUENTLY.
--- NOTE | 2019-10-11 21:30 | NUR ---
STILL OCCASIONALLY TRYING TO GET OUT OF BED, SITTER MONITORING PATIENT FOR SAFETY.
[2019-10-12] VITALS: BP 123/61
--- NOTE | 2019-10-12 | NUR ---
SLEEPING COMFORTABLY IN BED.
--- NOTE | 2019-10-12 02:00 | NUR ---
COMFORTABLE IN BED, SLEEPING ON HIS RIGHT SIDE.
[2019-10-12] MEDS: VANCOMYCIN 1,000 MG in NACL 0.9% 250 ML IV SCH ×3 (03:35→20:06)
--- NOTE | 2019-10-12 04:30 | NUR ---
HAD A MEDIUM FORMED BM. CLEANSED AND MADE COMFORTABLE IN BED.
[2019-10-12] MEDS: NACL 0.9% 1,000 ML IV SCH ×5 (05:15→20:28)
--- NOTE | 2019-10-12 06:30 | NUR ---
MOTHER OF PATIENT CALLED, REQUESTING PICTURE OF PATIENT'S THUMB TO BE TAKEN BEFORE PATIENT GO TO OR AND TEXT TO HER, CHARGE NURSE FATMATA TOLD MOM THAT WE CANNOT DO IT BECAUSE OF HIPAA REASONS. PICTURE CAN BE TAKEN BEFORE OR BUT IT WILL BE KEPT IN THE FILE.
--- NOTE | 2019-10-12 07:00 | NUR ---
CONDITION REMAIN STABLE. NPO FOR INCISION AND DRAINAGE OF LEFT THUMB. WILL ENDORSE TO AM NURSE FOR CONTINUITY OF CARE.
--- NOTE | 2019-10-12 07:41 | NUR ---
RECEIVED PATIENT FROM NIGHT NURSE. PATIENT IS SLEEPING COMFORTABLY IN BED WITH SITTER BY BEDSIDE. RESP EVEN AND UNLABORED ON ROOM AIR. I/D TO LEFT THUMB SCHEDULED WITH DR FUCHS TODAY. RFA IV SITE INTACT AND PATENT. CONTACT AND DROPLET PRECAUTION OBSERVED. SAFETY MEASURES IN PLACE. WILL CONTINUE TO MONITOR.
[2019-10-12 08:00] VITALS: BP 104/61
[2019-10-12] MEDS ORDERED: VANCOMYCIN PER PHARMACY MC PRN ×2 (08:05)
[2019-10-12] MEDS: levETIRAcetam 500 MG TAB PO SCH ×2 (09:28→20:07)
--- NOTE | 2019-10-12 10:13 | NUR ---
PATIENT IS CHANGED WITH FRANKFURTER INSPECTOR ASSIST. IV INTACT AND PATENT. REINFORCED WITH TRUDY BANDAGE. RESP EVEN AND UNLABORED ON ROOM AIR. SAFETY MEASURE IN PLACE. SITTER BY BEDSIDE. WILL CONTINUE TO MONITOR.
[2019-10-12] MEDS ORDERED: LIDOCAINE 1% 500 MG/50 ML VIAL ONE (10:25)
[2019-10-12] MEDS ORDERED: BUPIVACAINE-MPF 0.25% 30 ML VIAL INJ ONE (10:25)
[2019-10-12] MEDS ORDERED: SEVOFLURANE 250 ML BTL INH ONE (11:05)
[2019-10-12] MEDS ORDERED: fentaNYL citrate 0.05 MG/ML VIAL ONE (11:05)
[2019-10-12] MEDS ORDERED: MIDAZOLAM 2 MG/2 ML VIAL ONE (11:05)
--- NOTE | 2019-10-12 11:33 | NUR ---
PATIENT WENT TO OR FOR I/D TO LEFT THUMB. PATIENT LEFT IN STABLE CONDITION
[2019-10-12] MEDS ORDERED: diphenhydrAMINE 50 MG/ML VIAL IVP PRN (12:10)
[2019-10-12] MEDS ORDERED: ONDANSETRON 4 MG/2 ML VIAL IVP PRN (12:10)
--- NOTE | 2019-10-12 13:15 | NUR ---
PATIENT RETURNED FROM OR PROCEDURE OF I/D. PATIENT IN STABLE CONDITION. RESP EVEN AND UNLABORED ON ROOM AIR. WILL CONTINUE TO MONITOR.
[2019-10-12] MEDS: MUPIROCIN 2% OINT 22 GM TUBE TP SCH (14:14)
[2019-10-12] MEDS: CHLORHEXADINE GLUC 2% CLOTH TP SCH (14:15)
--- NOTE | 2019-10-12 14:21 | NUR ---
PATIENT IS RESTING COMFORTABLY IN BED. RESP EVEN AND UNLABORED ON ROOM AIR. SITTER AT BEDSIDE. SAFETY MEASURES IN PLACE. VITALS WNL. LEFT THUMB IS WRAPPED IN DRESSING, NO DRAINAGE NOTED. PATIENT IS COMFORTABLE. WILL CONTINUE TO MONITOR
[2019-10-12 16:00] VITALS: BP 107/61
--- NOTE | 2019-10-12 17:50 | NUR ---
PATIENT IS SLEEPING COMFORTABLY IN BED. RESP EVEN AND UNLABORED ON ROOM AIR. SAFETY MEASURES IN PLACE. SITTER BY BEDSIDE. WILL CONTINUE TO MONITOR.
--- NOTE | 2019-10-12 19:25 | NUR ---
ENDORSED PATIENT TO NIGHT NURSE. PATIENT IN STABLE CONDITION.
--- NOTE | 2019-10-12 19:26 | NUR ---
RECEIVED BEDSIDE SHIFT REPORT FROM DAY SHIFT NURSE. PT IN BED. AWAKE, ALERT, APHASIC. RESPIRATIONS EVEN AND UNLABORED TO ROOM AIR. ABDOMEN IS SOFT AND NON-TENDER. SKIN IS WARM AND DRY. PT S/P LEFT THUMB I&D, DRESSING DRY AND INTACT. PT IS INCONTINENT, CHUCKS IN PLACE. IV ACCESS ON R FA G24 PATENT AND INTACT, IVF INFUSING WELL. NO S/SX OF DISTRESS NOTED, FLACC 0. PT KEPT COMFORTABLE. SAFETY AND SEIZURE PRECAUTION IN PLACE. SITTER AT BEDSIDE. WILL CONTINUE TO MONITOR.
--- NOTE | 2019-10-12 20:10 | NUR ---
PT RESTING IN BED. SCHEDULED MEDS GIVEN ORDERED. PT NOT IN DISTRESS. FLACC 0. SAFETY MEASURES IN PLACE. SITTER AT BEDSIDE. WILL CONTINUE TO MONITOR.
--- NOTE | 2019-10-12 22:17 | NUR ---
PT SLEEPING IN BED. VISIBLE CHEST RISE AND FALL NOTED. NO S/SX OF DISTRESS NOTED. PT KEPT CALM AND COMFORTABLE. SITTER AT BEDSIDE. WILL CONTINUE TO MONITOR.
--- NOTE | 2019-10-12 23:48 | NUR ---
VITAL SIGNS STABLE. PT SLEEPING COMFORTABLY. NO S/X OF DISTRESS NOTED. RESPIRATIONS EVEN AND UNLABORED. PT KEPT SAFE AND COMFORTABLE. SITTER AT BEDSIDE. WILL CONTINUE TO MONITOR.
[2019-10-13] VITALS: BP 120/75
[2019-10-13] MEDS: NACL 0.9% 1,000 ML IV SCH ×6 (01:28→21:28)
--- NOTE | 2019-10-13 02:08 | NUR ---
PT ASLEEP. NO S/SX OF DISTRESS NOTED. RESPIRATIONS EVEN AND UNLABORED. FLACC 0. SITTER AT BEDSIDE. WILL CONTINUE TO MONITOR.
[2019-10-13] MEDS: VANCOMYCIN 1,000 MG in NACL 0.9% 250 ML IV SCH ×3 (03:50→20:18)
--- NOTE | 2019-10-13 04:18 | NUR ---
PT AWAKE. NOT IN DISTRESS. ASSISTED ENTERPRISE APPLICATION DEVELOPER IN DOING PERINEAL CARE. PT TOLERATED CARE PROVIDED. PT KEPT COMFORTABLE. SAFETY MEASURES IN PLACE. SITTER AT BEDSIDE. WILL CONTINUE TO MONITOR.
[2019-10-13 06:25] LABS: EOSINOPHILS # (AUTO) 0.2 K/uL (0-0.4); EOSINOPHILS % (AUTO) 3.6 % (0.0-4.0); HEMATOCRIT 43.6 % (36-52); HEMOGLOBIN 14.4 g/dL (12.0-18.0); LYMPHOCYTES # (AUTO) 1.8 K/uL (2.0-11.5); LYMPHOCYTES % (AUTO) 35.8 % (20.5-51.1); MEAN CORPUSCULAR HEMOGLOBIN 29 pg (27-31); MEAN CORPUSCULAR HGB CONC 33 g/dL (33-37); MEAN CORPUSCULAR VOLUME 88.8 fL (80-94); MONOCYTES # (AUTO) 0.4 K/uL (0.8-1.0); MONOCYTES % (AUTO) 7.7 % (1.7-9.3); NEUTROPHILS # (AUTO) 2.6 K/uL (1.8-7.7); NEUTROPHILS % (AUTO) 51.9 % (42.2-75.2); PLATELET COUNT (AUTO) 187 K/uL (140-450); RED BLOOD CELL COUNT(AUTO) 4.91 MIL/uL (4.20-6.10); RED CELL DISTRIBUTION WIDTH 12.8 % (11.6-13.7); WHITE BLOOD COUNT (AUTO) 5.1 K/uL (4.8-10.8)
[2019-10-13 07:25] LABS: CARBON DIOXIDE 28.8 mmol/L (21-32); CREATININE 0.7 mg/dL (0.6-1.3); POTASSIUM 3.8 mmol/L (3.5-5.1)
--- NOTE | 2019-10-13 07:31 | NUR ---
GAVE BEDSIDE SHIFT REPORT TO DAY SHIFT NURSE FOR CONTINUITY OF CARE. PATIENT IS IN STABLE CONDITION.
[2019-10-13 08:00] VITALS: BP 148/71
[2019-10-13] MEDS: levETIRAcetam 500 MG TAB PO SCH ×2 (09:13→20:18)
--- NOTE | 2019-10-13 09:30 | NUR ---
PT IS AWAKE IN BED. NO DISTRESS NOTED. IV INTACT AND INFUSING. LEFT THUMB WRAPPED. WOULD CHECK TO BE DONE. NO DISTRESS. MORNING MEDS GIVEN. ABELARDO IN LOW POSITION. CALL LIGHT IN REACH.
[2019-10-13] MEDS ORDERED: CEPH250C16 PO (10:17)
--- NOTE | 2019-10-13 11:30 | NUR ---
CALLED [facility] TO ASK FOR INFO FOR PT DISCHARGE.
--- NOTE | 2019-10-13 12:30 | NUR ---
REPORT GIVEN TO ISAMAR GOTTLIEB. PER [facility] THEY CANNOT TAKE PATIENT. THEY HAVE TO CALLED THEIR MAIN OFFICE AND GET PERMISSION TO TAKE BACK PATIENT. PT WILL HAVE TO STAY HERE UNTIL WEDNESDAY. CALLED ENERGY ATTORNEY AND REPORTED. PT WILL NOT BE DISCHARAGED TODAY.
--- NOTE | 2019-10-13 12:32 | NUR ---
Per primary RN request for wound dressing change to left thumb, per primary RN I&D done yesterday and surgeon said to change dressing daily. Wound care done with primary RN , Photo taken s/p debridement Left thumb. Wound cut/slit 3.2 cm in length, moist no drainage, no odor, jesús wound skin intact recommendation: Left thumb s/p I&D Rinse with NS, apply Adaptic followed by Dry 4x4's and secure with Kerlex Yamila Daily and PRN Soilage. May supply wound care dressing supplies when discharge,
--- NOTE | 2019-10-13 12:40 | NUR ---
WOUND CARE DONE BY WOUND NURSE PATI.
--- NOTE | 2019-10-13 13:14 | NUR ---
10/13/19 RD INITIAL ASSESSMENT COMPLETED PLEASE REFER TO NUTRITION ASSESSMENT UNDER CARE ACTIVITY FOR ESTIMATED NUTRITIONAL NEEDS. 1. CONTINUE REGULAR DIET TOLERATED 2. CONTINUE TO ASSIST WITH PATIENT MEALS AND ENCOURAGE PO INTAKE 3. RD TO FOLLOW-UP 3-5 DAYS, MODERATE RISK DARBY HURTADO, RD
[2019-10-13] MEDS: MUPIROCIN 2% OINT 22 GM TUBE TP SCH (13:56)
[2019-10-13] MEDS: CHLORHEXADINE GLUC 2% CLOTH TP SCH (13:57)
--- NOTE | 2019-10-13 15:16 | NUR ---
PT IS RIGHT SIDE LATERAL. IV ABX INFUSING AT THIS TIME. NO DISTRESS. FLACC 0. SITTER BY BEDSIDE. BED IN LOW POSITION. CALL LIGHT IN REACH.
[2019-10-13 16:00] VITALS: BP 102/46
--- NOTE | 2019-10-13 17:00 | NUR ---
PT IS RIGHT LATERAL. NO DISTRESS. SITTER BY BEDSIDE. BED IN LOW POSITION. CALL LIGHT IN REACH.
--- NOTE | 2019-10-13 19:18 | NUR ---
SHIFT REPORT GIVEN TO GRADUATE RECRUITER NURSE. PT EATING DINNER. PT IS STABLE.
--- NOTE | 2019-10-13 19:19 | NUR ---
RECEIVED BEDSIDE REPORT FROM DAY SHIFT NURSE. PT IN BED EATING DINNER WITH ASSISTANCE OF SITTER. PT IN STABLE CONDITION. NO S/SX OF DISTRESS NOTED. FLACC 0. RESPIRATIONS ARE EVEN AND UNLABORED TO ROOM AIR. SKIN IS WARM AND DRY. LEFT THUMB DRESSING DRY AND INTACT. ABDOMEN IS SOFT AND NON-TENDER. IV ACCESS ON RIGHT FOREARM G 24 PATENT AND INTACT, IVF INFUSING WELL. PT KEPT COMFORTABLE. SAFETY MEASURES IN PLACE. SITTER AT BEDSIDE. WILL CONTINUE TO MONITOR.
--- NOTE | 2019-10-13 20:20 | NUR ---
PT IN BED WITH SITTER AT BEDSIDE. SCHEDULED MEDS GIVEN ORDERED. NO S/SX OF DISTRESS NOTED. FLACC 0. PT KEPT COMFORTABLE. SAFETY MEASURES IN PLACE. WILL CONTINUE TO MONITOR.
--- NOTE | 2019-10-13 22:18 | NUR ---
ROUNDS MADE. PT IN BED SLEEPING. SITTER AT BEDSIDE. NO S/SX OF DISTRESS NOTED. PT KEPT COMFORTABLE. SAFETY MEASURES IN PLACE. WILL CONTINUE TO MONITOR.
[2019-10-14] VITALS: BP 97/61
--- NOTE | 2019-10-14 00:18 | NUR ---
VITAL SIGNS STABLE. PT IN BED SLEEPING, SITTER AT BEDSIDE. NO S/SX OF DISTRESS NOTED. RESPIRATIONS EVEN AND UNLABORED. PT KEPT COMFORTABLE. SAFETY MEASURES IN PLACE. WILL CONTINUE TO MONITOR.
--- NOTE | 2019-10-14 02:23 | NUR ---
PT SLEEPING IN BED. SITTER AT BEDSIDE. VISIBLE CHEST RISE AND FALL NOTED. NO S/SX OF DISCOMFORT, FLACC 0. PT KEPT COMFORTABLE. SAFETY MEASURES IN PLACE. WILL CONTINUE TO MONITOR.
[2019-10-14] MEDS: VANCOMYCIN 1,000 MG in NACL 0.9% 250 ML IV SCH ×3 (03:32→20:02)
--- NOTE | 2019-10-14 04:28 | NUR ---
ASLEEP. SITTER AT BEDSIDE. PT NOT IN DISTRESS. VISIBLE CHEST RISE AND FALL NOTED. FLACC 0. PERINEAL CARE DONE WITH SEWING INSPECTOR. PT TOLERATED CARE. SAFETY MEASURES IN PLACE. WILL CONTINUE TO MONITOR.
[2019-10-14] MEDS: NACL 0.9% 1,000 ML IV SCH ×5 (05:48→22:28)
--- NOTE | 2019-10-14 06:02 | NUR ---
IV DISLODGED, CANNULA INTACT. NEW IV ACCESS INSERTED ON LEFT UPPER ARM G24, PATENT AND INTACT. WILL CONTINUE TO MONITOR.
--- NOTE | 2019-10-14 07:07 | NUR ---
GAVE BEDSIDE SHIFT REPORT TO DAY SHIFT NURSE. PT IS IN STABLE CONDITION.
--- NOTE | 2019-10-14 07:40 | NUR ---
RECEIVED PT BACK FOR CONTINUITY OF CARE.
[2019-10-14 08:00] VITALS: BP 104/59
[2019-10-14] MEDS: levETIRAcetam 500 MG TAB PO SCH ×2 (08:04→21:00)
--- NOTE | 2019-10-14 08:05 | NUR ---
PT IN BED WITH SITTER AT BEDSIDE. VS STABLE. PT JUST FINISHED EATING BREAKFAST. SCHEDULED MEDICATION GIVEN ORDERED. NO S/SX OF DISTRESS NOTED. SAFETY MEASURES IN PLACE. WILL CONTINUE TO MONITOR.
[2019-10-14] MEDS: MUPIROCIN 2% OINT 22 GM TUBE TP SCH (11:09)
[2019-10-14] MEDS: CHLORHEXADINE GLUC 2% CLOTH TP SCH (11:10)
--- NOTE | 2019-10-14 11:11 | NUR ---
PT AWAKE IN BED WITH SITTER AT BEDSIDE. SCHEDULED MEDS GIVEN ORDERED. WOUND CARE AND DRESSING CHANGE DONE. PT TOLERATED CARE. SAFETY MEASURES IN PLACE. WILL CONTINUE TO MONITOR.
--- NOTE | 2019-10-14 11:15 | NUR ---
ASSUMED CARE FROM JONH. PT RESTING. NO SOB NOTED. N0 SIGNS OF PAIN AT THIS TIME. WITH SITTER AT THE BEDSIDE FOR SAFETY. WILL CONTINUE TO MONITOR PT.
[2019-10-14 14:03] LABS: CARBON DIOXIDE 32.6 mmol/L (21-32); CREATININE 0.9 mg/dL (0.6-1.3); POTASSIUM 3.6 mmol/L (3.5-5.1)
[2019-10-14 14:09] LABS: BASOPHILS % (AUTO) 0.5 % (0.0-2.0); EOSINOPHILS # (AUTO) 0.2 K/uL (0-0.4); EOSINOPHILS % (AUTO) 4.4 % (0.0-4.0); HEMATOCRIT 47.7 % (36-52); HEMOGLOBIN 15.6 g/dL (12.0-18.0); LYMPHOCYTES # (AUTO) 1.8 K/uL (2.0-11.5); LYMPHOCYTES % (AUTO) 39.1 % (20.5-51.1); MEAN CORPUSCULAR HEMOGLOBIN 29 pg (27-31); MEAN CORPUSCULAR HGB CONC 33 g/dL (33-37); MEAN CORPUSCULAR VOLUME 88.8 fL (80-94); MONOCYTES # (AUTO) 0.4 K/uL (0.8-1.0); MONOCYTES % (AUTO) 7.8 % (1.7-9.3); NEUTROPHILS # (AUTO) 2.2 K/uL (1.8-7.7); NEUTROPHILS % (AUTO) 48.2 % (42.2-75.2); PLATELET COUNT (AUTO) 214 K/uL (140-450); RED BLOOD CELL COUNT(AUTO) 5.37 MIL/uL (4.20-6.10); RED CELL DISTRIBUTION WIDTH 12.9 % (11.6-13.7); WHITE BLOOD COUNT (AUTO) 4.5 K/uL (4.8-10.8)
[2019-10-14 16:00] VITALS: BP 112/65
--- NOTE | 2019-10-14 19:30 | NUR ---
PT AWAKE. NO SOB NOTED. NO SIGNS OF PAIN AT THIS TIME. WITH SITTER AT THE BEDSIDE FOR SAFETY. WILL ENDORSE TO NEXT SHIFT NURSE FOR CONTINUITY OF CARE.
--- NOTE | 2019-10-14 19:31 | NUR ---
RECD. SLEEPING COMFORTABLY IN BED, EASILY AROUSABLE, DROWSY. RESPIRATION EVEN AND UNLABORED. IV OF NS AT 100 ML/HR INFUSING, LEFT FOREARM G22. INCISION IN THE LEFT THUMB COVERED WITH DRESSING DRY AND INTACT. SAFETY MEASURES ENFORCED. ON 1:1 SITTER. ON IV ANTIBIOTICS. NO APPEARANCE OF PAIN NOTED, FLACC -0.
--- NOTE | 2019-10-14 21:30 | NUR ---
STILL SLEEPING COMFORTABLY IN BED, OPENS EYES WHEN WAKEN BUT WENT BACK TO SLEEP AGAIN, WILL GIVE KEPPRA WHEN FULLY AWAKE.
[2019-10-15] VITALS: BP 118/72
[2019-10-15] MEDS: levETIRAcetam 500 MG TAB PO SCH ×3 (01:11→21:47)
--- NOTE | 2019-10-15 01:11 | NUR ---
WAKES UP, A/OX1. SMILES AND MAKE INCOMPREHENSIBLE SOUNDS. MEDICATED WITH KEPPRA WITH APPLE SAUCE. TOLERARED WELL.
--- NOTE | 2019-10-15 03:00 | NUR ---
TRYING TO GET OUT OF BED, REPOSITIONED IN BED WITH PILLOWS. 1:1 SITTER MONITORING PATIENT FOR SAFETY.
[2019-10-15] MEDS: NACL 0.9% 1,000 ML IV SCH ×6 (03:28→23:28)
[2019-10-15] MEDS: VANCOMYCIN 1,000 MG in NACL 0.9% 250 ML IV SCH ×3 (04:03→19:39)
--- NOTE | 2019-10-15 07:00 | NUR ---
SLEEPING COMFORTABLY IN BED. CONDITION REMAIN STABLE. SAFETY MAINTAINED DURING SHIFT. WILL ENDORSE TO AM SHIFT NURSE FOR CONTINUITY OF CARE.
--- NOTE | 2019-10-15 07:10 | NUR ---
RECEIVED REPORT FROM PM TAHMINA. PT CAME FROM [facility]. C/O: LT THUMB PAIN. DX: LT THUMB CELLULITIS. 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 PT REQUIRES A SITTER. ISO: MRSA OF NARES AND MRSA OF WOUND. IV: LT UPPER CHEST 22G RUNNING 100 NS. A&O1. REGULAR DIET, CRUSH MEDS. PT IS INCONTINENT. PLAN: D/C ON WEDNESDAY, DRESSING CHANGE PRN. VANCO TROUGH WAS HIGH, CALL PHARMACY ABOUT PASSING VANCO.
[2019-10-15 07:19] LABS: BASOPHILS % (AUTO) 0.5 % (0.0-2.0); EOSINOPHILS # (AUTO) 0.2 K/uL (0-0.4); EOSINOPHILS % (AUTO) 3.8 % (0.0-4.0); HEMATOCRIT 43.3 % (36-52); HEMOGLOBIN 14.2 g/dL (12.0-18.0); LYMPHOCYTES % (AUTO) 37.1 % (20.5-51.1); MEAN CORPUSCULAR HEMOGLOBIN 29 pg (27-31); MEAN CORPUSCULAR HGB CONC 33 g/dL (33-37); MEAN CORPUSCULAR VOLUME 89.6 fL (80-94); MONOCYTES # (AUTO) 0.6 K/uL (0.8-1.0); MONOCYTES % (AUTO) 10.5 % (1.7-9.3); NEUTROPHILS # (AUTO) 2.6 K/uL (1.8-7.7); NEUTROPHILS % (AUTO) 48.1 % (42.2-75.2); PLATELET COUNT (AUTO) 190 K/uL (140-450); RED BLOOD CELL COUNT(AUTO) 4.84 MIL/uL (4.20-6.10); RED CELL DISTRIBUTION WIDTH 13.1 % (11.6-13.7); WHITE BLOOD COUNT (AUTO) 5.4 K/uL (4.8-10.8)
[2019-10-15 07:30] LABS: ANION GAP 10.1 (8-16); CARBON DIOXIDE 30.6 mmol/L (21-32); CREATININE 0.7 mg/dL (0.6-1.3); POTASSIUM 3.7 mmol/L (3.5-5.1)
[2019-10-15 08:00] VITALS: BP 112/63
--- NOTE | 2019-10-15 10:00 | NUR ---
CRUSHED MEDICATIONS IN APPLE SAUCE. PT TOLERATED WELL. IV PATENT.
[2019-10-15] MEDS: CHLORHEXADINE GLUC 2% CLOTH TP SCH (11:00)
[2019-10-15] MEDS: MUPIROCIN 2% OINT 22 GM TUBE TP SCH (11:00)
--- NOTE | 2019-10-15 11:00 | NUR ---
DC IV IN LT SHOULD. IV CAME OUT. NEW IV PLACED ON RT UPPER ARM 20G. RUNNING NS AT 100. PT TOLERATED WELL.
--- NOTE | 2019-10-15 15:00 | NUR ---
CHECKED ON PT. PT IS RESTING IN BED. NO SIGNS OF DISTRESS.
[2019-10-15 16:00] VITALS: BP 120/69
--- NOTE | 2019-10-15 16:00 | NUR ---
PT RESTING IN BED. NO SIGNS OF DISTRESS.
--- NOTE | 2019-10-15 19:21 | NUR ---
TRANSFER OF CARE TO INVESTIGATIVE SHOPPER. PT IS IN BED EATING DINNER WITH SITTER. NO SIGNS OF DISTRESS. VITAL SIGNS STABLE.
--- NOTE | 2019-10-15 19:23 | NUR ---
RECD. RESTING IN BED, AWAKE, A/OX1, MENTALLY CHALLENGED. SMILES AND SOMETIMES MAKES INCOMPREHENSIBLE SOUNDS. RESPIRATION EVEN AND UNLABORED. IV OF NS AT 100 ML/HR INFUSING, RIGHT UPPER ARM G20. INCISION IN THE LEFT THUMB COVERED WITH GAUZE DRESSING, DRY AND INTACT. SAFETY MEASURES ENFORCED. BED IN THE LOWEST POSITION. 1:1 SITTER MONITORING PATIENT NEAR DOOR. NO APPEARANCE OF PAIN NOTED, 0/10.
[2019-10-15 20:00] VITALS: BP 110/63
--- NOTE | 2019-10-15 21:47 | NUR ---
DUE PO MEDICATIONS GIVEN WITH PUDDING, TOLERATED WELL.
--- NOTE | 2019-10-16 | NUR ---
SLEEPING COMFORTABLY IN BED.
--- NOTE | 2019-10-16 02:00 | NUR ---
AWAKE, TRYING TO GET OUT OF BED. REPOSITIONED AND WENT BACK TO SLEEP.
[2019-10-16] MEDS: VANCOMYCIN 1,000 MG in NACL 0.9% 250 ML IV SCH (04:41)
--- NOTE | 2019-10-16 05:00 | NUR ---
ABLE TO OBTAINED URINE FOR URINALYSIS BY CONDO CATH. TAKEN TO LABORATORY.
[2019-10-16 06:20] LABS: APPEARANCE,URINE CLEAR (CLEAR); BILIRUBIN,URINE NEGATIVE (NEGATIVE); BLOOD, URINE NEGATIVE (NEGATIVE); COLOR,URINE YELLOW (YELLOW); LEUKOCYTE ESTERASE ,URINE NEGATIVE (NEGATIVE); NITRITE, URINE NEGATIVE (NEGATIVE); UGLUCOSE NEGATIVE (NEGATIVE)
[2019-10-16 06:52] LABS: BARBITURATE, URINE NEGATIVE ng/ml (NEG <=200); BENZODIAZEPINE, URINE NEGATIVE ng/mL (NEG <=200); CANNABINOID, URINE NEGATIVE ng/mL (NEG <=50); COCAINE, URINE NEGATIVE ng/mL (NEG <=300); OPIATE, URINE NEGATIVE ng/mL (NEG <=2000); PHENCYCLIDINE SCREEN,URINE NEGATIVE ng/mL (NEG <=25)
--- NOTE | 2019-10-16 07:19 | NUR ---
RECEIVED REPORT FROM PM TAHMINA. PT CAME FROM [facility]. C/O: LT THUMB PAIN. DX: LT THUMB CELLULITIS. 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 PT REQUIRES A SITTER. ISO: MRSA OF NARES AND MRSA OF WOUND. IV: RT UPPER ARM 20G IV. RUNNING NS 100. A&O1. REGULAR DIET, CRUSH MEDS. PT IS INCONTINENT. PLAN: D/C ON WEDNESDAY, DRESSING CHANGE PRN. ANIMAL NURSERY WORKER: IRC RN FROM FACILITY WILL COME AND ASSESS PT. WHEN PT IS DC: GIVE KIRLEX, CLING CHRISTIE, ADAPTIC, 4X4S, AND NS TO CLEANSE.
--- NOTE | 2019-10-16 07:20 | NUR ---
CONDITION REMAIN STABLE. ENDORSED TO ISAMAR SCHUMACHER FOR CONTINUITY OF CARE.
[2019-10-16] MEDS: NACL 0.9% 1,000 ML IV SCH (07:48)
[2019-10-16 07:56] LABS: BASOPHILS % (AUTO) 0.8 % (0.0-2.0); EOSINOPHILS # (AUTO) 0.2 K/uL (0-0.4); EOSINOPHILS % (AUTO) 5.3 % (0.0-4.0); HEMATOCRIT 41.4 % (36-52); HEMOGLOBIN 13.8 g/dL (12.0-18.0); LYMPHOCYTES # (AUTO) 1.8 K/uL (2.0-11.5); MEAN CORPUSCULAR HEMOGLOBIN 30 pg (27-31); MEAN CORPUSCULAR HGB CONC 33 g/dL (33-37); MEAN CORPUSCULAR VOLUME 88.9 fL (80-94); MONOCYTES # (AUTO) 0.4 K/uL (0.8-1.0); MONOCYTES % (AUTO) 9.1 % (1.7-9.3); NEUTROPHILS # (AUTO) 1.7 K/uL (1.8-7.7); NEUTROPHILS % (AUTO) 40.8 % (42.2-75.2); PLATELET COUNT (AUTO) 183 K/uL (140-450); RED BLOOD CELL COUNT(AUTO) 4.66 MIL/uL (4.20-6.10); RED CELL DISTRIBUTION WIDTH 12.9 % (11.6-13.7); WHITE BLOOD COUNT (AUTO) 4.1 K/uL (4.8-10.8)
[2019-10-16 08:00] VITALS: BP 115/47
--- NOTE | 2019-10-16 08:00 | NUR ---
PASSED MEDICATIONS. PT TOLERATED WELL.
[2019-10-16] MEDS: levETIRAcetam 500 MG TAB PO SCH (08:11)
[2019-10-16 08:47] LABS: ANION GAP 10.7 (8-16); CARBON DIOXIDE 29.1 mmol/L (21-32); CREATININE 0.7 mg/dL (0.6-1.3); POTASSIUM 3.8 mmol/L (3.5-5.1)
--- NOTE | 2019-10-16 09:00 | NUR ---
RECEIVED DC ORDERS. SPOKE WITH CAREGIVER. PT WILL BE DISCHARGED AT 1200
[2019-10-16 10:40] VITALS: BP 115/47
--- NOTE | 2019-10-16 11:30 | NUR ---
GAVE PT DRESSING CHANGE. PT TOLERATED WELL.
--- NOTE | 2019-10-16 12:00 | NUR ---
SPOKE WITH CAREGIVER, COORDINATOR OF REHABILITATION SERVICES SIGNED ALL DOCUMENTS ON BEHALF OF PT. GAVE WOUND DRESSING ORDERS.
--- NOTE | 2019-10-16 13:27 | NUR ---
PT DC TO [facility] ACCOMPANIED BY REMOTE PILOT OPERATOR. VS STABLE. NO SIGNS OF DISTRESS
[2019-10-16] MEDS ORDERED: VANC125C12 PO (13:37)
== END 2019-10-16 13:30 | DRG 710 ==
LOC: MED 19:26 → MTU 20:49
PROVIDERS: ADMIT Emergency Medicine; ATTEND Emergency Medicine
PROC: 0X9K0ZZ Drainage of Left Hand, Open Approach (ICD-10-PCS; 2019-10-08)
PROC: 0J9K0ZZ Drainage of Left Hand Subcutaneous Tissue and Fascia, Open Approach (ICD-10-PCS; 2019-10-12)
PROC: 0JBK0ZZ Excision of Left Hand Subcutaneous Tissue and Fascia, Open Approach (ICD-10-PCS; principal; 2019-10-12 12:30)
DX: A41.9 Sepsis, unspecified organism (principal); E87.0 Hyperosmolality and hypernatremia; E86.0 Dehydration; G40.909 Epilepsy, unspecified, not intractable, without status epilepticus; G80.9 Cerebral palsy, unspecified; F79 Unspecified intellectual disabilities; L02.512 Cutaneous abscess of left hand; L03.012 Cellulitis of left finger; B95.62 Methicillin resistant Staphylococcus aureus infection as the cause of diseases classified elsewhere; L03.114 Cellulitis of left upper limb; Z20.828 Contact with and (suspected) exposure to other viral communicable diseases; K59.00 Constipation, unspecified; R62.50 Unspecified lack of expected normal physiological development in childhood; Z79.899 Other long term (current) drug therapy
CPT/HCPCS: 36415; 71045; 73120; 76881; 80048; 80053; 80202; 80305; 81003; 82150; 83036; 83605; 83690; 83735; 83880; 84100; 84436; 84439; 84443; 84479; 84484; 85025; 85610; 85730; 87040; 87070; 87081; 87086; 87186; 96365; 96372; 99285; J0690; J0696; J1885; J2001; J2250; J3010; J3370; J3490; J7030; J7060; Q0092; U0003-CS

== ENCOUNTER 2020-02-13 19:36 | Emergency (ER) | payer MEDICAID ==
[~2020-02-13] VITALS: Ht 185.4 cm; Wt 65.8 kg
[~2020-02-13 19:36] MED LIST: ACET-2619 PO; BISA-218 RC; CARB15DR5 OT; CEPH250C16 PO; CHLO120L4 TP; DOCO1CRE TP; ERYT2GEL22 TP; KEP500 PO; LEVE250T1 PO; LEVE500T9 PO; MAGN2400 PO; MIRABULK PO; MULT-2247 PO; NA P133N16 RC; NAPR220T29 PO; ROB1 PO; VANC125C12 PO
[2020-02-13 20:20] VITALS: BP 136/85
--- NOTE | 2020-02-13 20:20 | NUR ---
to tent # 2 ambulatory
--- NOTE | 2020-02-13 20:55 | NUR ---
SEEN AND EXAMINED BY JASS WITH ORDERS AND CARRIED OUT
--- NOTE | 2020-02-13 22:00 | NUR ---
SWAB DONE SENT TO LAB
--- NOTE | 2020-02-13 22:10 | NUR ---
RESULT BACK AND NOTED BY ERMD AND FOR D/C
[2020-02-13 22:35] VITALS: BP 124/79
--- NOTE | 2020-02-13 22:35 | NUR ---
Patient discharged with v/s stable. Written and verbal after care instructions given and explained. Patient alert, oriented and verbalized understanding of instructions. Wheel Chair Assisted with to car. All questions addressed prior to discharge. ID band removed. Patient advised to follow up with PMD. Rx of AZITHROMYCIN, ACETAMINOPHEN given. Patient educated on indication of medication including possible reaction and side effects. Opportunity to ask questions provided and answered.
--- NOTE | 2020-02-13 22:55 | NUR ---
Raheem castellano in ED - 02/13/20 at 2311 by LISA SEEN AND EXAMINED BY ERMD WITH ORDERS AND CARRIED OUT
--- NOTE | 2020-02-15 15:09 | NUR ---
COVID RESULTS RECEIVED FROM LAB. RESULTS= POSITIVE.
== END 2020-02-13 22:35 | disposition home or self-care (01) ==
LOC: MED 19:36
DX: R50.9 Fever, unspecified (principal); Z20.828 Contact with and (suspected) exposure to other viral communicable diseases; Z79.899 Other long term (current) drug therapy
CPT/HCPCS: 71045; 99284; U0003

== ENCOUNTER 2020-08-09 08:04 | Emergency (ER) | payer MEDICAID ==
[~2020-08-09] VITALS: Ht 165.1 cm; Wt 67.6 kg
--- NOTE | 2020-08-09 08:13 | NUR ---
W/C TO BED 8
--- NOTE | 2020-08-09 08:13 | NUR ---
Patient wheelchair assisted to bed 8.
[2020-08-09 08:14] VITALS: BP 128/77
--- NOTE | 2020-08-09 08:30 | NUR ---
40 Y/O NON-VERBAL MALE BIB CAREGIVER FROM [facility] C/O RIGHT EAR PAIN X 5 DAYS. CAREGIVER STATES PT WAS TAKEN TO MD VILLALOBOS WITH URMILA AND PRESCRIBED KEFLEX BUT SYMPTOMS HAVE WORSENED. PT CAREGIVER STATES PT IS GRIMACING AND PULLING ON EAR. DENIES FEVER/CHILLS, DENIES N/V/D. UPON ASSESSMENT, RIGHT EAR WITH REDNESS AND SWELLING, NO DISCHARGE NOTED. ERMD MADE AWARE OF PT STATUS. PMH: SEIZURE, INTELLECTUAL DISABILITY, CP, SCOLIOSIS, MRSA, KLEINFELTERS SYNDROME NKA
[2020-08-09] MEDS ORDERED: CEPH500C16 PO (08:41)
[2020-08-09] MEDS ORDERED: IBUP-1842 PO (08:41)
[2020-08-09] MEDS ORDERED: MUPI2CRE22 TP (08:41)
[2020-08-09] MEDS ORDERED: SULF-59 PO (08:41)
[2020-08-09 08:47] VITALS: BP 128/77
--- NOTE | 2020-08-09 08:47 | NUR ---
Patient discharged with v/s stable. Written and verbal after care instructions given and explained. Patient alert, oriented and verbalized understanding of instructions. Wheel Chair Assisted with by caregiver. All questions addressed prior to discharge. ID band removed. Patient advised to follow up with PMD. Rx of CEPHALEXIN, IBUPROFEN, MUPIROCIN, BACTRIM given. Patient educated on indication of medication including possible reaction and side effects. Opportunity to ask questions provided and answered.
== END 2020-08-09 08:47 | disposition home or self-care (01) ==
LOC: MED 08:04
DX: H60.11 Cellulitis of right external ear (principal); Z79.899 Other long term (current) drug therapy
CPT/HCPCS: 99283

== ENCOUNTER 2023-11-08 13:31 | Inpatient (IN) | payer MEDICAID, OTHER ==
[~2023-11-08] VITALS: Ht 185.4 cm; Wt 61.0 kg
[~2023-11-08 13:31] MED LIST changes: -BISA-218 RC; +BISA-279 RC; +CARB15DR30 OT; -CARB15DR5 OT; +CEPH500C16 PO; +IBUP-1842 PO; +MAGN1200 PO; -MAGN2400 PO; +MUPI2CRE22 TP; -NA P133N16 RC; +SODI133E14 RC; +SULF-59 PO
[2023-11-08 13:37] VITALS: BP 130/50; PULSE 124; RESP 18; TEMP 98.1; O2SAT 97
[2023-11-08] MEDS ORDERED: PIPERACILLIN/TAZOBACTAM 3.375 GM VIAL IV ONE (14:13)
[2023-11-08] MEDS: NACL 0.9% 1,000 ML IV ONE ×2 (14:18→15:30)
[2023-11-08] MEDS: PIPERACILLIN/TAZOBACTAM 3.375 GM in DEXTROSE 5% 50 ML IV ONE (14:28)
[2023-11-08 14:32] LABS: BASOPHILS % (AUTO) 0.2 % (0.0-2.0); EOSINOPHILS # (AUTO) 0.1 K/uL (0-0.4); EOSINOPHILS % (AUTO) 0.5 % (0.0-4.0); HEMATOCRIT 37.1 % (36-52); HEMOGLOBIN 12.2 g/dL (12.0-18.0); LYMPHOCYTES # (AUTO) 1.4 K/uL (2.0-11.5); LYMPHOCYTES % (AUTO) 12.6 % (20.5-51.1); MEAN CORPUSCULAR HEMOGLOBIN 28 pg (27-31); MEAN CORPUSCULAR HGB CONC 33 g/dL (33-37); MONOCYTES # (AUTO) 0.8 K/uL (0.8-1.0); MONOCYTES % (AUTO) 7.2 % (1.7-9.3); NEUTROPHILS # (AUTO) 8.8 K/uL (1.8-7.7); NEUTROPHILS % (AUTO) 79.5 % (42.2-75.2); PLATELET COUNT (AUTO) 299 K/uL (140-450); RED BLOOD CELL COUNT(AUTO) 4.32 MIL/uL (4.20-6.10); RED CELL DISTRIBUTION WIDTH 13.6 % (11.6-13.7)
[2023-11-08 14:46] LABS: INR 1.03 (0.8-1.2); PARTIAL THROMBOPLASTIN TIME 26.8 secs (22-35.6); PROTHROMBIN TIME 10.8 secs (10.8-13.4)
[2023-11-08 14:50] LABS: LACTIC ACID 1.4 mmol/L (0.4-2.0)
[2023-11-08 14:53] LABS: FLU A ANTIGEN negative (NEGATIVE); FLU B ANTIGEN NEGATIVE (NEGATIVE)
[2023-11-08 14:55] LABS: BILIRUBIN,URINE NEGATIVE (NEGATIVE); BLOOD, URINE 2+ (NEGATIVE); LEUKOCYTE ESTERASE ,URINE 3+ (NEGATIVE); NITRITE, URINE NEGATIVE (NEGATIVE); PH,URINE 7.5 (5.0-9.0); PROTEIN,URINE 2+ (NEGATIVE); UGLUCOSE NEGATIVE (NEGATIVE)
[2023-11-08 14:58] LABS: APPEARANCE,URINE CLOUDY (CLEAR); COLOR,URINE AMBER (YELLOW)
[2023-11-08 15:00] LABS: ANION GAP 9.1 (8-16); CARBON DIOXIDE 35.5 mmol/L (21-32); CREATININE 0.7 mg/dL (0.6-1.3); POTASSIUM 3.6 mmol/L (3.5-5.1)
[2023-11-08 15:03] LABS: ALANINE AMINOTRANSFERASE 64 U/L (12-78); ALBUMIN 2.4 g/dL (3.4-5.0); ALKALINE PHOSPHATASE 122 U/L (50-136); ASPARTATE AMINOTRANSFERASE 35 U/L (15-37); BILIRUBIN,DIRECT 0.2 mg/dL (0.0-0.3); CREATINE KINASE, TOTAL 50 U/L (39-308); TOTAL BILIRUBIN 0.4 mg/dL (0.0-1.0)
[2023-11-08 15:14] LABS: BACTERIA,URINE >30 (MANY) /HPF (None Seen); SQUAMOUS EPITHELIAL CELL,UR 4-10 (MOD) /LPF (0-3 (FEW)); TRIPLE PHOSPHATE CRYSTAL,UR 0-10 /HPF (None Seen)
[2023-11-08] MEDS ORDERED: VANCOMYCIN 1,000 MG VIAL ONE (15:21)
[2023-11-08] MEDS: VANCOMYCIN 1,000 MG in DEXTROSE 5% 250 ML IV ONE (15:33)
[2023-11-08 18:02] LABS: BLOOD GAS PCO2 45.6 mmHg (35.0-48.0); BLOOD GAS PH 7.463 (7.350-7.450); BLOOD GAS PO2 103.3 mmHg (83.0-108.0)
[2023-11-08 18:03] LABS: BLOOD GAS BASE EXCESS 7.2 mmol/L (-2.0-3.0); BLOOD GAS HCO3 31.9 mmol/L (21.0-28.0); BLOOD GAS O2 SAT% 97.6 % (94.0-98.0)
[2023-11-08] MEDS: DEXT 5% / NACL 0.9% 1,000 ML IV ONE (18:35)
[2023-11-08 20:00] VITALS: BP_SYST 121; BP_SYST 143; BP_DIAS 71; BP_DIAS 87; PULSE 117; PULSE 87; RESP 18; TEMP 97.7; TEMP 98.6; O2SAT 96; O2SAT 97
[2023-11-08 20:30] VITALS: PULSE 128
[2023-11-08 21:43] VITALS: PULSE 128; RESP 18; O2SAT 96
[2023-11-08] MEDS ORDERED: MAGNESIUM HYDROXIDE 2400 MG/30 ML UDC PO PRN (22:05)
[2023-11-08] MEDS ORDERED: ACETAMINOPHEN 325 MG TAB PO PRN (22:05)
[2023-11-08] MEDS ORDERED: bisacodyL 10 MG SUPP RC PRN (22:05)
[2023-11-08] MEDS ORDERED: ONDANSETRON 4 MG/2 ML VIAL IVP PRN (22:05)
[2023-11-08] MEDS ORDERED: SODIUM PHOSPHATE 118 ML ENEM RC PRN (22:05)
[2023-11-08 22:07] VITALS: O2SAT 96
[2023-11-08 23:44] VITALS: BP 131/74; PULSE 119; RESP 20; TEMP 98.4; O2SAT 95
[2023-11-09] VITALS (12 sets, daily range): BP systolic 118–128; BP diastolic 64–76; PULSE 106–124; RESP 16–20; TEMP 98.2–99.4; O2SAT 92–99
[2023-11-09] MEDS: PIPERACILLIN/TAZOBACTAM 3.375 GM in DEXTROSE 5% 50 ML IV SCH (00:25)
[2023-11-09] MEDS: PIPERACILLIN/TAZOBACTAM 3.375 GM VIAL IV ONE ×2 (00:25→06:30)
[2023-11-09 05:45] LABS: BASOPHILS % (AUTO) 0.3 % (0.0-2.0); EOSINOPHILS # (AUTO) 0.1 K/uL (0-0.4); EOSINOPHILS % (AUTO) 0.6 % (0.0-4.0); HEMATOCRIT 32.1 % (36-52); HEMOGLOBIN 10.7 g/dL (12.0-18.0); LYMPHOCYTES # (AUTO) 1.6 K/uL (2.0-11.5); LYMPHOCYTES % (AUTO) 17.2 % (20.5-51.1); MEAN CORPUSCULAR HEMOGLOBIN 29 pg (27-31); MEAN CORPUSCULAR HGB CONC 33 g/dL (33-37); MEAN CORPUSCULAR VOLUME 86.2 fL (80-94); MONOCYTES # (AUTO) 0.6 K/uL (0.8-1.0); MONOCYTES % (AUTO) 6.1 % (1.7-9.3); NEUTROPHILS # (AUTO) 7.1 K/uL (1.8-7.7); NEUTROPHILS % (AUTO) 75.8 % (42.2-75.2); PLATELET COUNT (AUTO) 253 K/uL (140-450); RED BLOOD CELL COUNT(AUTO) 3.73 MIL/uL (4.20-6.10); WHITE BLOOD COUNT (AUTO) 9.4 K/uL (4.8-10.8)
[2023-11-09 05:53] LABS: ANION GAP 8.8 (8-16); CALCIUM 8.4 mg/dL (8.5-10.1); CARBON DIOXIDE 33.3 mmol/L (21-32); CREATININE 0.6 mg/dL (0.6-1.3); POTASSIUM 3.1 mmol/L (3.5-5.1)
[2023-11-09] MEDS: levETIRAcetam 100 MG/ML ORASYR PO SCH (08:17)
[2023-11-09] MEDS: POLYETHYLENE GLYCOL 17 GM/PKT PO SCH (08:17)
[2023-11-09] MEDS: GLYCOPYRROLATE 1 MG TAB PO SCH (08:17)
[2023-11-09] MEDS: MULTIVITAMIN/MINERALS 15 ML UDBTL GT SCH (08:21)
[2023-11-09] MEDS ORDERED: MUPIROCIN CA NASAL 2% 1GM TUBE NS SCH (09:00)
[2023-11-09] MEDS ORDERED: MULTIVITAMIN/MINERALS 1 TAB PO SCH (09:00)
[2023-11-09] MEDS ORDERED: NON-FORMULARY ITEM (Multivit,Tx,Iron/Calcm/FA/Mins (Thera-M Caplet) 1 TAB) PO SCH (09:00)
[2023-11-09] MEDS: HYDRAGUARD CREAM TP SCH (13:15)
[2023-11-09] MEDS ORDERED: CARBAMIDE PEROXIDE 6.5% OT 15 ML BTL OT SCH (17:00)
[2023-11-09] MEDS: POTASSIUM CHLORIDE 20% 40 MEQ/15 ML UDC GT SCH (17:37)
[2023-11-09] MEDS: CALCIUM GLUC 1 GM/50 mL NS BAG 50 ML IV SCH (17:58)
[2023-11-10] VITALS (10 sets, daily range): BP systolic 118–140; BP diastolic 63–78; PULSE 85–130; RESP 18; TEMP 98.1–98.9; O2SAT 93–97
[2023-11-10 05:35] LABS: BASOPHILS % (AUTO) 0.4 % (0.0-2.0); EOSINOPHILS # (AUTO) 0.1 K/uL (0-0.4); EOSINOPHILS % (AUTO) 1.1 % (0.0-4.0); HEMATOCRIT 36.4 % (36-52); LYMPHOCYTES # (AUTO) 1.9 K/uL (2.0-11.5); LYMPHOCYTES % (AUTO) 24.3 % (20.5-51.1); MEAN CORPUSCULAR HEMOGLOBIN 28 pg (27-31); MEAN CORPUSCULAR HGB CONC 33 g/dL (33-37); MEAN CORPUSCULAR VOLUME 85.7 fL (80-94); MONOCYTES # (AUTO) 0.8 K/uL (0.8-1.0); MONOCYTES % (AUTO) 9.7 % (1.7-9.3); NEUTROPHILS # (AUTO) 5.1 K/uL (1.8-7.7); NEUTROPHILS % (AUTO) 64.5 % (42.2-75.2); PLATELET COUNT (AUTO) 286 K/uL (140-450); RED BLOOD CELL COUNT(AUTO) 4.25 MIL/uL (4.20-6.10); RED CELL DISTRIBUTION WIDTH 13.9 % (11.6-13.7); WHITE BLOOD COUNT (AUTO) 7.9 K/uL (4.8-10.8)
[2023-11-10 06:15] LABS: ALBUMIN 2.1 g/dL (3.4-5.0); CALCIUM 8.6 mg/dL (8.5-10.1); CARBON DIOXIDE 31.2 mmol/L (21-32); CREATININE 0.7 mg/dL (0.6-1.3); TOTAL BILIRUBIN 0.6 mg/dL (0.0-1.0); TOTAL PROTEIN, SERUM 6.3 g/dL (6.4-8.2)
[2023-11-10 07:24] LABS: ANION GAP 11.4 (8-16); POTASSIUM 3.6 mmol/L (3.5-5.1)
[2023-11-10] MEDS ORDERED: SODIUM PHOSPHATE 118 ML ENEM RC PRN (07:49)
[2023-11-10] MEDS ORDERED: FOAM DRESSING TP PRN (13:25)
[2023-11-10] MEDS ORDERED: THERAHONEY GEL 42.5 GM TP PRN (13:25)
[2023-11-10] MEDS ORDERED: Z-GUARD PASTE TP PRN (13:25)
[2023-11-10] MEDS: IBUPROFEN 400 MG TAB PO PRN (13:43)
[2023-11-10] MEDS: ACETAMINOPHEN 325 MG TAB PO PRN (14:26)
[2023-11-10] MEDS: THERAHONEY GEL 42.5 GM TP SCH (17:57)
[2023-11-11] VITALS (7 sets, daily range): BP systolic 112–128; BP diastolic 63–79; PULSE 74–133; RESP 18–20; TEMP 97–98.6; O2SAT 74–96
[2023-11-11] MEDS: Z-GUARD PASTE TP SCH (01:21)
[2023-11-11 05:18] LABS: BASOPHILS % (AUTO) 0.4 % (0.0-2.0); EOSINOPHILS # (AUTO) 0.1 K/uL (0-0.4); EOSINOPHILS % (AUTO) 0.9 % (0.0-4.0); HEMATOCRIT 35.5 % (36-52); HEMOGLOBIN 11.8 g/dL (12.0-18.0); LYMPHOCYTES # (AUTO) 1.9 K/uL (2.0-11.5); LYMPHOCYTES % (AUTO) 20.2 % (20.5-51.1); MEAN CORPUSCULAR HEMOGLOBIN 28 pg (27-31); MEAN CORPUSCULAR HGB CONC 33 g/dL (33-37); MONOCYTES % (AUTO) 10.3 % (1.7-9.3); NEUTROPHILS # (AUTO) 6.5 K/uL (1.8-7.7); NEUTROPHILS % (AUTO) 68.2 % (42.2-75.2); PLATELET COUNT (AUTO) 327 K/uL (140-450); RED BLOOD CELL COUNT(AUTO) 4.17 MIL/uL (4.20-6.10); RED CELL DISTRIBUTION WIDTH 13.7 % (11.6-13.7); WHITE BLOOD COUNT (AUTO) 9.5 K/uL (4.8-10.8)
[2023-11-11 05:49] LABS: ANION GAP 9.4 (8-16); CALCIUM 8.6 mg/dL (8.5-10.1); CARBON DIOXIDE 32.3 mmol/L (21-32); CREATININE 0.7 mg/dL (0.6-1.3); POTASSIUM 3.7 mmol/L (3.5-5.1)
[2023-11-11] MEDS: FOAM DRESSING TP SCH (15:44)
[2023-11-12] VITALS (9 sets, daily range): BP systolic 110–130; BP diastolic 59–89; PULSE 107–130; RESP 18–20; TEMP 97–98.8; O2SAT 92–97
[2023-11-12 05:08] LABS: BASOPHILS # (AUTO) 0.1 K/uL (0.00-0.22); BASOPHILS % (AUTO) 0.6 % (0.0-2.0); EOSINOPHILS # (AUTO) 0.1 K/uL (0-0.4); EOSINOPHILS % (AUTO) 1.1 % (0.0-4.0); HEMATOCRIT 35.9 % (36-52); HEMOGLOBIN 12.1 g/dL (12.0-18.0); LYMPHOCYTES # (AUTO) 2.1 K/uL (2.0-11.5); LYMPHOCYTES % (AUTO) 21.2 % (20.5-51.1); MEAN CORPUSCULAR HEMOGLOBIN 29 pg (27-31); MEAN CORPUSCULAR HGB CONC 34 g/dL (33-37); MEAN CORPUSCULAR VOLUME 85.2 fL (80-94); MONOCYTES % (AUTO) 9.8 % (1.7-9.3); NEUTROPHILS # (AUTO) 6.7 K/uL (1.8-7.7); NEUTROPHILS % (AUTO) 67.3 % (42.2-75.2); PLATELET COUNT (AUTO) 318 K/uL (140-450); RED BLOOD CELL COUNT(AUTO) 4.21 MIL/uL (4.20-6.10)
[2023-11-12 06:08] LABS: ALBUMIN 2.1 g/dL (3.4-5.0); ANION GAP 13.7 (8-16); CALCIUM 8.7 mg/dL (8.5-10.1); CARBON DIOXIDE 28.9 mmol/L (21-32); CREATININE 0.7 mg/dL (0.6-1.3); POTASSIUM 3.6 mmol/L (3.5-5.1); TOTAL BILIRUBIN 0.5 mg/dL (0.0-1.0); TOTAL PROTEIN, SERUM 6.7 g/dL (6.4-8.2)
[2023-11-12] MEDS ORDERED: VANCOMYCIN PER PHARMACY MC PRN (18:15)
[2023-11-12] MEDS ORDERED: ONDANSETRON 4 MG/2 ML VIAL ONE (19:00)
[2023-11-12] MEDS ORDERED: DEXAMETHASONE 10 MG/ML VIAL ONE (19:00)
[2023-11-12] MEDS: fentaNYL citrate 0.05 MG/ML VIAL ONE ×2 (19:36→20:06)
[2023-11-12] MEDS: MIDAZOLAM 2 MG/2 ML VIAL ONE (19:36)
[2023-11-12] MEDS: LIDOCAINE 2% 100 MG/5 ML SYR IVP ONE ×4 (19:40→20:07)
[2023-11-12] MEDS: PROPOFOL 200 MG/20 ML VIAL IV ONE (19:54)
[2023-11-12] MEDS: BUPIVACAINE-MPF 0.25% 30 ML VIAL INJ ONE (20:00)
[2023-11-12] MEDS: LIDOCAINE/EPI 1% 1:100000 20 ML VIAL INJ ONE (20:00)
[2023-11-12] MEDS: VANCOMYCIN HCL 750 MG in DEXTROSE 5% 250 ML IV SCH (21:39)
[2023-11-13] VITALS (8 sets, daily range): BP systolic 96–125; BP diastolic 57–77; PULSE 109–129; RESP 17–20; TEMP 97.2–98.9; O2SAT 92–96
[2023-11-13] MEDS: LORazepam 2 MG/ML VIAL IVP PRN (02:50)
[2023-11-13 05:44] LABS: BASOPHILS # (AUTO) 0.1 K/uL (0.00-0.22); BASOPHILS % (AUTO) 0.8 % (0.0-2.0); EOSINOPHILS # (AUTO) 0.1 K/uL (0-0.4); EOSINOPHILS % (AUTO) 0.8 % (0.0-4.0); HEMATOCRIT 35.3 % (36-52); HEMOGLOBIN 11.4 g/dL (12.0-18.0); LYMPHOCYTES # (AUTO) 1.7 K/uL (2.0-11.5); MEAN CORPUSCULAR HEMOGLOBIN 28 pg (27-31); MEAN CORPUSCULAR HGB CONC 32 g/dL (33-37); MONOCYTES # (AUTO) 1.1 K/uL (0.8-1.0); MONOCYTES % (AUTO) 9.4 % (1.7-9.3); NEUTROPHILS # (AUTO) 8.5 K/uL (1.8-7.7); PLATELET COUNT (AUTO) 374 K/uL (140-450); RED BLOOD CELL COUNT(AUTO) 4.11 MIL/uL (4.20-6.10); RED CELL DISTRIBUTION WIDTH 13.9 % (11.6-13.7); WHITE BLOOD COUNT (AUTO) 11.4 K/uL (4.8-10.8)
[2023-11-13 05:50] LABS: ANION GAP 7.1 (8-16); CALCIUM 8.7 mg/dL (8.5-10.1); CARBON DIOXIDE 34.4 mmol/L (21-32); CREATININE 0.8 mg/dL (0.6-1.3); POTASSIUM 3.5 mmol/L (3.5-5.1)
[2023-11-13] MEDS: PIPERACILLIN/TAZOBACTAM 3.375 GM in DEXTROSE 5% 50 ML IV SCH (18:20)
[2023-11-14] VITALS (12 sets, daily range): BP systolic 102–114; BP diastolic 60–74; PULSE 106–123; RESP 16–19; TEMP 97–98.2; O2SAT 92–100
[2023-11-14 08:26] LABS: BASOPHILS % (AUTO) 0.6 % (0.0-2.0); EOSINOPHILS # (AUTO) 0.2 K/uL (0-0.4); EOSINOPHILS % (AUTO) 2.2 % (0.0-4.0); HEMATOCRIT 32.5 % (36-52); HEMOGLOBIN 10.6 g/dL (12.0-18.0); LYMPHOCYTES # (AUTO) 1.7 K/uL (2.0-11.5); LYMPHOCYTES % (AUTO) 22.7 % (20.5-51.1); MEAN CORPUSCULAR HEMOGLOBIN 28 pg (27-31); MEAN CORPUSCULAR HGB CONC 33 g/dL (33-37); MONOCYTES # (AUTO) 0.6 K/uL (0.8-1.0); MONOCYTES % (AUTO) 8.2 % (1.7-9.3); NEUTROPHILS # (AUTO) 4.9 K/uL (1.8-7.7); NEUTROPHILS % (AUTO) 66.3 % (42.2-75.2); PLATELET COUNT (AUTO) 290 K/uL (140-450); RED BLOOD CELL COUNT(AUTO) 3.82 MIL/uL (4.20-6.10); RED CELL DISTRIBUTION WIDTH 13.9 % (11.6-13.7); WHITE BLOOD COUNT (AUTO) 7.4 K/uL (4.8-10.8)
[2023-11-14 08:35] LABS: ANION GAP 7.8 (8-16); CALCIUM 8.6 mg/dL (8.5-10.1); CARBON DIOXIDE 36.7 mmol/L (21-32); CREATININE 0.7 mg/dL (0.6-1.3); POTASSIUM 3.5 mmol/L (3.5-5.1)
[2023-11-15] VITALS (13 sets, daily range): BP systolic 114–131; BP diastolic 70–88; PULSE 111–125; RESP 16–19; TEMP 96.7–98.2; O2SAT 90–98
[2023-11-16] VITALS (10 sets, daily range): BP systolic 110–142; BP diastolic 73–84; PULSE 106–130; RESP 18–19; TEMP 96.2–98.3; O2SAT 92–97
[2023-11-16 05:15] LABS: BASOPHILS # (AUTO) 0.1 K/uL (0.00-0.22); BASOPHILS % (AUTO) 0.6 % (0.0-2.0); EOSINOPHILS # (AUTO) 0.2 K/uL (0-0.4); EOSINOPHILS % (AUTO) 2.3 % (0.0-4.0); HEMOGLOBIN 11.3 g/dL (12.0-18.0); LYMPHOCYTES # (AUTO) 1.7 K/uL (2.0-11.5); LYMPHOCYTES % (AUTO) 19.2 % (20.5-51.1); MEAN CORPUSCULAR HEMOGLOBIN 28 pg (27-31); MEAN CORPUSCULAR HGB CONC 33 g/dL (33-37); MEAN CORPUSCULAR VOLUME 84.9 fL (80-94); MONOCYTES # (AUTO) 0.7 K/uL (0.8-1.0); MONOCYTES % (AUTO) 7.9 % (1.7-9.3); NEUTROPHILS # (AUTO) 6.2 K/uL (1.8-7.7); PLATELET COUNT (AUTO) 371 K/uL (140-450); RED BLOOD CELL COUNT(AUTO) 4.01 MIL/uL (4.20-6.10); RED CELL DISTRIBUTION WIDTH 13.8 % (11.6-13.7); WHITE BLOOD COUNT (AUTO) 8.9 K/uL (4.8-10.8)
[2023-11-16 06:39] LABS: ANION GAP 10.8 (8-16); CALCIUM 8.9 mg/dL (8.5-10.1); CARBON DIOXIDE 33.9 mmol/L (21-32); CREATININE 0.7 mg/dL (0.6-1.3); POTASSIUM 3.7 mmol/L (3.5-5.1)
[2023-11-16] MEDS: METOPROLOL 25 MG TAB PO SCH (20:41)
[2023-11-17] VITALS (11 sets, daily range): BP systolic 104–145; BP diastolic 58–88; PULSE 82–129; RESP 18–22; TEMP 97.3–98.7; O2SAT 93–100
[2023-11-17 06:01] LABS: BASOPHILS # (AUTO) 0.1 K/uL (0.00-0.22); EOSINOPHILS # (AUTO) 0.2 K/uL (0-0.4); EOSINOPHILS % (AUTO) 3.1 % (0.0-4.0); HEMATOCRIT 33.8 % (36-52); HEMOGLOBIN 11.2 g/dL (12.0-18.0); LYMPHOCYTES # (AUTO) 1.8 K/uL (2.0-11.5); LYMPHOCYTES % (AUTO) 26.1 % (20.5-51.1); MEAN CORPUSCULAR HEMOGLOBIN 29 pg (27-31); MEAN CORPUSCULAR HGB CONC 33 g/dL (33-37); MEAN CORPUSCULAR VOLUME 85.7 fL (80-94); MONOCYTES # (AUTO) 0.7 K/uL (0.8-1.0); MONOCYTES % (AUTO) 9.8 % (1.7-9.3); NEUTROPHILS # (AUTO) 4.1 K/uL (1.8-7.7); PLATELET COUNT (AUTO) 341 K/uL (140-450); RED BLOOD CELL COUNT(AUTO) 3.94 MIL/uL (4.20-6.10); RED CELL DISTRIBUTION WIDTH 13.9 % (11.6-13.7); WHITE BLOOD COUNT (AUTO) 6.8 K/uL (4.8-10.8)
[2023-11-17 08:13] LABS: ANION GAP 10.7 (8-16); CALCIUM 9.2 mg/dL (8.5-10.1); CREATININE 0.6 mg/dL (0.6-1.3); POTASSIUM 3.7 mmol/L (3.5-5.1); TOTAL BILIRUBIN 0.3 mg/dL (0.0-1.0); TOTAL PROTEIN, SERUM 6.7 g/dL (6.4-8.2)
[2023-11-18] VITALS (10 sets, daily range): BP systolic 109–125; BP diastolic 47–80; PULSE 75–134; RESP 16–20; TEMP 96.2–98; O2SAT 93–95
[2023-11-18 05:48] LABS: ANION GAP 7.1 (8-16); CALCIUM 9.1 mg/dL (8.5-10.1); CARBON DIOXIDE 36.4 mmol/L (21-32); CREATININE 0.7 mg/dL (0.6-1.3); POTASSIUM 3.5 mmol/L (3.5-5.1)
[2023-11-18 06:28] LABS: BASOPHILS # (AUTO) 0.2 K/uL (0.00-0.22); BASOPHILS % (AUTO) 2.6 % (0.0-2.0); EOSINOPHILS # (AUTO) 0.1 K/uL (0-0.4); EOSINOPHILS % (AUTO) 1.3 % (0.0-4.0); HEMATOCRIT 35.3 % (36-52); HEMOGLOBIN 11.6 g/dL (12.0-18.0); LYMPHOCYTES % (AUTO) 20.9 % (20.5-51.1); MEAN CORPUSCULAR HEMOGLOBIN 28 pg (27-31); MEAN CORPUSCULAR HGB CONC 33 g/dL (33-37); MEAN CORPUSCULAR VOLUME 85.6 fL (80-94); MONOCYTES # (AUTO) 0.7 K/uL (0.8-1.0); MONOCYTES % (AUTO) 7.1 % (1.7-9.3); NEUTROPHILS # (AUTO) 6.5 K/uL (1.8-7.7); NEUTROPHILS % (AUTO) 68.1 % (42.2-75.2); PLATELET COUNT (AUTO) 373 K/uL (140-450); RED BLOOD CELL COUNT(AUTO) 4.12 MIL/uL (4.20-6.10); RED CELL DISTRIBUTION WIDTH 14.1 % (11.6-13.7); WHITE BLOOD COUNT (AUTO) 9.5 K/uL (4.8-10.8)
[2023-11-18] MEDS ORDERED: METO25TA PO (13:46)
== END 2023-11-18 20:17 | DRG 720 ==
LOC: MED 13:31 → INTOOBSV 17:55 → MTU 17:55 → OBSVTOIN 17:55 → MTU 20:26
PROVIDERS: ADMIT Preventive Medicine Preventive Medicine/Occupational Environmental Medicine; ATTEND Preventive Medicine Preventive Medicine/Occupational Environmental Medicine
PROC: 0JB70ZZ Excision of Back Subcutaneous Tissue and Fascia, Open Approach (ICD-10-PCS; 2023-11-12)
PROC: 0JBG0ZZ Excision of Right Lower Arm Subcutaneous Tissue and Fascia, Open Approach (ICD-10-PCS; principal; 2023-11-12 18:30)
DX: A41.9 Sepsis, unspecified organism (principal); J96.01 Acute respiratory failure with hypoxia; E43 Unspecified severe protein-calorie malnutrition; L89.150 Pressure ulcer of sacral region, unstageable; R53.2 Functional quadriplegia; J18.9 Pneumonia, unspecified organism; N39.0 Urinary tract infection, site not specified; Z68.1 Body mass index [BMI] 19.9 or less, adult; S51.801A Unspecified open wound of right forearm, initial encounter; D64.9 Anemia, unspecified; G40.909 Epilepsy, unspecified, not intractable, without status epilepticus; R79.89 Other specified abnormal findings of blood chemistry; R13.10 Dysphagia, unspecified; X58.XXXA Exposure to other specified factors, initial encounter; Y95 Nosocomial condition; Z20.822 Contact with and (suspected) exposure to COVID-19; B96.20 Unspecified Escherichia coli [E. coli] as the cause of diseases classified elsewhere; B95.62 Methicillin resistant Staphylococcus aureus infection as the cause of diseases classified elsewhere; G80.9 Cerebral palsy, unspecified; Z93.1 Gastrostomy status; Y93.89 Activity, other specified; Y92.89 Other specified places as the place of occurrence of the external cause; Y99.8 Other external cause status; Z74.01 Bed confinement status
CPT/HCPCS: 36415; 36600; 71045; 80048; 80053; 80076; 80202; 81001; 82272; 82550; 82803; 82948; 83605; 83880; 84484; 85025; 85610; 85651; 85730; 86140; 87040; 87070; 87075; 87081; 87086; 87186; 87205; 87426; 87804; 88304; 93005; 94760; 96365; 96368; 97110; 97163; 97530; 99291; J0610; J1100; J2001; J2060; J2250; J2405; J2543; J2704; J3010; J3370; J3490; J7060; J7120; Q0092